=== PATIENT | female | born 1980 | race Caucasian/White ===

== ENCOUNTER 2019-12-19 14:33 | Outpatient (CLI) | payer OTHER, SELFPAY ==
--- NOTE | 2019-12-19 | ECHO_ITS ---
Patient Info Name: Aaliyah Young Age: 39 years : 1980 Gender: Female Ht: 66 in Wt: 155 lbs BSA: 1.82 m2 HR: 76 bpm BP: 102 / 75 mmHg Heart Rhythm: Sinus Rhythm Technical Quality: Excellent Exam Date: 12/19/2019 2:59 PM Exam Location: [facility] Pulmonary Patient Status: Outpatient Admit Date: 12/19/2019 Staff Ordering Physician: Sondra, Milagros Marie APRN Puller Over: Yesica Inman RDCS Attending Provider: Marianela, Milagros Marie APRN Referring Physician: Sondra KEATING; Exam Type: CA echo doppler color flow Study Info Indications M35.7 - HYPERMOBILITY SYNDROME Complete two-dimensional, color flow and Doppler transthoracic echocardiogram is performed. Summary 1. Left ventricular systolic function is normal, estimated at 60-65%. 2. There is no increased left ventricular wall thickness. 3. The left ventricular diastolic function is normal. 4. Global longitudinal strain is normal at -23 %. 5. There is trace mitral valve regurgitation. 6. No pulmonary hypertension, estimated pulmonary arterial systolic pressure is 17 mmHg. Left Ventricle Left ventricular chamber dimension is normal. Left ventricular systolic function is normal, estimated at 60-65%. There is no increased left ventricular wall thickness. The left ventricular diastolic function is normal. Global longitudinal strain is normal at -23 %. Right Ventricle Right ventricular chamber dimension is normal. Right ventricular systolic function is normal. Left Atria Left atrial chamber dimension is normal. Right Atria Right atrial chamber dimension is normal. Aortic Valve The aortic valve is trileaflet. There is no aortic valve stenosis. There is no aortic valve regurgitation. Pulmonic Valve The pulmonic valve is not well visualized. There is trace pulmonic regurgitation. Mitral Valve The mitral valve has normal leaflets. There is trace mitral valve regurgitation. Tricuspid Valve The tricuspid valve leaflets are normal. There is trace tricuspid valve regurgitation. No pulmonary hypertension, estimated pulmonary arterial systolic pressure is 17 mmHg. Pericardium/Pleural The pericardium appears normal. There is no pericardial effusion. Inferior Vena Cava Normal inferior vena cava with >50% collapse upon inspiration consistent with normal right atrial pressure, 5 mmHg. Aorta The aortic root size at the sinus of Valsalva is normal. The prox ascending aorta size is normal. Left Ventricular Outflow Tract Name Value Normal LVOT 2D LVOT Diameter 2.0 cm LVOT Doppler LVOT Peak Gradient 3 mmHg LVOT Mean Gradient 2 mmHg LVOT VTI 18 cm LVOT VTI/AV VTI Ratio 0.7 LVOT Stroke Volume 55 ml LVOT CO 3.8 l/min LVOT CI 2.1 l/min/m2 Pulmonic Valve Name Value Normal
== END 2019-12-19 14:34 | disposition home or self-care (01) ==
PROVIDERS: Visit Provider Nurse Practitioner Family
DX: M35.7 Hypermobility syndrome (principal)
CPT/HCPCS: 93306

== ENCOUNTER 2020-08-20 08:26 | Outpatient (CLI) | payer OTHER, SELFPAY ==
--- NOTE | ~2020-08-20 | MM_ITS ---
EXAMINATION: MM screening ned BI w katt HISTORY: Screening TECHNIQUE: Craniocaudal and mediolateral oblique 3-D tomosynthesis images were obtained and synthetic 2-D images were generated. CAD analysis was submitted and interpreted. COMPARISON: No prior mammogram is available for comparison at this institution. BREAST PARENCHYMAL COMPOSITION: There are scattered areas of fibroglandular density. FINDINGS: There is no evidence of suspicious mass, calcification, or architectural distortion to sugg est malignancy in either breast. There has been no suspicious interval change. IMPRESSION: 1. No mammographic evidence of malignancy. 2. Recommend routine screening mammography in one year. BI-RADS Category 1: Negative Reviewed, dictated and finalized at location A.
== END 2020-08-20 08:27 | disposition home or self-care (01) ==
PROVIDERS: Visit Provider Obstetrics & Gynecology Gynecology
DX: Z12.31 Encounter for screening mammogram for malignant neoplasm of breast (principal)
CPT/HCPCS: 77063; 77067

== ENCOUNTER 2020-11-22 08:58 | Outpatient (NON) | payer OTHER, SELFPAY ==
[2020-11-22 18:47] LABS: SARS-CoV-2 RNA PCR Negative
== END 2020-11-22 08:59 ==
LOC: ANHCOVIDDT 09:00
PROVIDERS: PCP Family Medicine; Visit Provider Family Medicine
DX: Z20.822 Contact with and (suspected) exposure to COVID-19 (principal)
CPT/HCPCS: C9803; U0003; U0005

== ENCOUNTER 2020-12-09 08:05 | Outpatient (CLI) | payer OTHER, SELFPAY ==
--- NOTE | ~2020-12-09 | XR_ITS ---
XR chest 2V DATE: 12/09/2020 08:30 INDICATION: Shortness of breath for 4 weeks. Nonsmoker. TECHNIQUE: PA and lateral views COMPARISON: 05/18/2017 two-view chest 06/28/2009 CT pulmonary scan FINDINGS: Normal heart size. No hilar or mediastinal enlargement. No pulmonary infiltrate or consolidation, pleural effusion or pulmonary vascular congestion or pneumo thorax. Mild thoracic and lumbar scoliosis. IMPRESSION: No active cardiopulmonary disease Reviewed, dictated and finalized at location A. 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
[2020-12-09 08:29] LABS: Basophils Percent Auto 0.6 % (0.2-1.2); Eosinophils Absolute Auto 0.3 K/mm3 (0-0.3); Eosinophils Percent Auto 4.7 % (0-4.4); Hematocrit 40.4 % (37.0-47.0); Hemoglobin 13.3 g/dL (12.0-15.0); Immature Granulocyte Absolute 0.01 K/mm3 (0.00-0.031); Immature Granulocyte Percent A 0.2 % (0-0.5); Lymphocytes Absolute Auto 1.82 K/mm3 (0.9-3.2); Lymphocytes Percent Auto 33.9 % (18.3-44.2); Mean Corpuscular HGB Conc 32.9 g/dl (32-36); Mean Corpuscular Hemoglobin 29.8 pg (26-34); Mean Corpuscular Volume 90.6 fl (80-100); Monocytes Absolute Auto 0.5 K/mm3 (0.1-0.6); Monocytes Percent Auto 9.1 % (2.6-8.5); Neutrophils Absolute Auto 2.8 K/mm3 (1.3-6.7); Neutrophils Percent Auto 51.5 % (45.5-73.1); Platelet Count Result 211 k/mm3 (150-375); Red Blood Count 4.46 M/mm3 (4.2-5.4); Red Cell Distribution Width 12.3 % (11.5-14.5); White Blood Count 5.4 K/mm3 (4.5-10.0)
[2020-12-09 09:40] LABS: Alanine Aminotransferase 13 U/L (4-35); Alkaline Phosphatase 51 U/L (38-126); Anion Gap 6 mmol/L (8-16); Aspartate Amino Transferase 21 U/L (14-36); Bilirubin,Total 0.5 mg/dL (0.2-1.3); Blood Urea Nitrogen 14 mg/dL (7-17); Carbon Dioxide 27 mmol/L (22-30); Chloride 108 mmol/L (98-107); Cholesterol 160 mg/dL (0-200); Estimated Glomerular Filt Rate > 60; Glucose 99 mg/dL (65-105); HDL Direct 54 mg/dL; Potassium 4.2 mmol/L (3.4-5.0); Sodium 141 mmol/L (137-145); Triglycerides 66 mg/dL (<150)
[2020-12-09 09:53] LABS: LDL Cholesterol Direct 78 mg/dL
[2020-12-09 10:09] LABS: Free T4 Free Thyroxine 0.84 ng/mL (0.78-2.19); Vitamin D 25 Hydroxy 40.9 ng/mL
[2020-12-09 10:13] LABS: Total Triiodothyronine (T3) 1.01 NG/ML (0.97-1.69)
== END 2020-12-09 08:06 | disposition home or self-care (01) ==
PROVIDERS: PCP Family Medicine; Visit Provider Nurse Practitioner
DX: R06.02 Shortness of breath (principal); E55.9 Vitamin D deficiency, unspecified; Z13.6 Encounter for screening for cardiovascular disorders; Z13.0 Encounter for screening for diseases of the blood and blood-forming organs and certain disorders involving the immune mechanism; Z13.220 Encounter for screening for lipoid disorders; Z13.29 Encounter for screening for other suspected endocrine disorder
CPT/HCPCS: 36415; 71046; 80053; 80061; 82306; 84439; 84443; 84480; 85025

== ENCOUNTER → 2021-01-27 01:00 | Outpatient (CLI) | payer OTHER, SELFPAY ==
[2021-01-27 20:24] LABS: SARS-CoV-2 RNA PCR Negative
== END ==
PROVIDERS: PCP Family Medicine; Visit Provider Internal Medicine Gastroenterology
DX: Z01.812 Encounter for preprocedural laboratory examination (principal); Z20.822 Contact with and (suspected) exposure to COVID-19
CPT/HCPCS: C9803; U0003; U0005

== ENCOUNTER 2021-01-30 01:38 | Day surgery (SDC) | payer OTHER, SELFPAY ==
[2021-01-16 10:20] VITALS: BMI 24.5
[2021-01-30 09:56] VITALS: BP 116/76; PULSE 85; RESP 16; TEMP 37.1; O2SAT 100; BMI 24.3
[2021-01-30] MEDS: LACTATED RINGERS 1,000 ML 150 ML IV CONT (10:04)
--- NOTE | 2021-01-30 10:12 | P.PNAN_ITS ---
Anes - Initial Pre Proc Eval Procedure: Operation Date: 01/30/21 11:00 Proposed Procedures p Esophagogastroduodenoscopy - Madi Jonas DO Date/Time: 01/30/21 10:12 Surgeon: Madi Jonas DO Pre Op Diagnosis: dysphagia Patient Data Age: 40 Gender: F Height: 5 ft 6 in Weight: 68.5 kg Last Vital Signs Temp 98.8 F 01/30/21 09:56 Pulse 85 01/30/21 09:56 Resp 16 01/30/21 09:56 BP 116/76 01/30/21 09:56 Pulse Ox 100 01/30/21 09:56 Allergies Allergy/AdvReac Type Severity Reaction Status Date / Time No Known Allergies Allergy Verified 01/30/21 09:55 Home Medications Medication Instructions Recorded Confirmed Type celecoxib 200 mg PO DAILY 01/16/21 01/16/21 History hydroxyzine HCl 25 mg PO HS 01/16/21 01/16/21 History omeprazole 20 mg PO DAILY 01/16/21 01/16/21 History Patient hx anesthesia problems: none Family hx anesthesia problems: none [facility] Past Medical History Medical History (Updated 01/30/21 @ 10:12 by Wil Agustin MD) GERD (gastroesophageal reflux disease) Social History Social History Smoking status: Never smoker Alcohol intake: never Substance use: never Substance use type: does not use Living arrangements: with family Spiritual care concerns: No Anes - Eval Final PreProcedure Day of Procedure 01/30/21 10:12 Patient weight: normal Heart: regular rate and rhythm Lungs: clear to auscultation Airway: Mallampati scale class II Neurological: alert and oriented Last oral intake: >/= 8 hours ASA classification: II Emergent: no Anesthetic plan: proceed Anesthesia type and monitoring: general GIVS and standard monitoring Informed Consent: The patient's anesthetic plan and its attendant risks and benefits were discussed with the patient/family/POA. Questions were solicited and answers provided to the satisfaction of the patient/family/POA.
--- NOTE | 2021-01-30 10:45 | WPDGICN ---
GI Consult Note Consult date/time: 01/30/21 10:45 HPI: Reason for visit is EGD. This very pleasant lady seen in consultation at request of the primary physician. Impression: Here above very pleasant lady with a history dysphagia and reflux disease. We evaluate for underlying reflux induced stricture. Underlying eosinophilic esophagitis in differential. Ankylosing spondylitis with HLA B27 positivity. Recommendation: Continue omeprazole. Will proceed with EGD. History: This very pleasant lady is being read for dysphagia. She has dysphagia to solid foods for the last year so. She does have reflux a couple of times per week. She was complaining of chest pressure polyps. One placed on omeprazole her chest pressure and heartburn have improved considerably. She is here for endoscopic evaluation to assess for lying stricture. Physical examination: General: very pleasant patient in no acute distress. HEENT: Head was normocephalic sclerae is clear mouth without masses neck was supple. Heart: Rate rhythm regular without S3 or S4. Lungs: CTA. Abdomen: Soft with no guarding or rigidity. Bowel sounds were active. Neurologic: Cranial nerves 2 through 12 intact. No focal defects. No clonus. Musculoskeletal system: Revealed no joint tenderness or swelling no muscle atrophy. Extremities: Reveal no significant edema. Skin: Warm and dry with normal turgor. Mental status: intact. Patient is alert and oriented. Review of Systems Review of Systems: All systems reviewed & are unremarkable except as noted in HPI and below PMFSH Past Medical History Medical History (Updated 01/30/21 @ 10:12 by Wil Agustin MD) GERD (gastroesophageal reflux disease) Social History Social History Smoking status: Never smoker Alcohol intake: never Substance use: never Substance use type: does not use Living arrangements: with family Spiritual care concerns: No Meds Home Medications and Allergies Home Medications Medication Instructions Recorded Confirmed Type celecoxib 200 mg PO DAILY 01/16/21 01/16/21 History hydroxyzine HCl 25 mg PO HS 01/16/21 01/16/21 History omeprazole 20 mg PO DAILY 01/16/21 01/16/21 History Allergies Allergy/AdvReac Type Severity Reaction Status Date / Time No Known Allergies Allergy Verified 01/30/21 09:55 Vital Signs Vital Signs - 24 hr 01/30/21 09:56 Temperature 37.1 C Pulse Rate 85 Respiratory Rate 16 Blood Pressure 116/76 Pulse Oximetry 100
[2021-01-30 11:05] VITALS: BP 91/51; PULSE 75; RESP 20; O2SAT 100
[2021-01-30 11:15] VITALS: BP 105/75; PULSE 75; RESP 20; O2SAT 100
[2021-01-30 11:25] VITALS: BP 111/78; PULSE 75; RESP 20; O2SAT 100
== END 2021-01-30 11:39 | disposition home or self-care (01) ==
PROVIDERS: PCP Family Medicine; Visit Provider Internal Medicine Gastroenterology
PROC: 0DJ08ZZ Inspection of Upper Intestinal Tract, Via Natural or Artificial Opening Endoscopic (ICD-10-PCS; CPT 43235; principal; 2021-01-30 11:00)
DX: K21.9 Gastro-esophageal reflux disease without esophagitis (principal); R13.10 Dysphagia, unspecified; K31.7 Polyp of stomach and duodenum; M45.9 Ankylosing spondylitis of unspecified sites in spine
CPT/HCPCS: 43239; 43450; 87081; 88305; C9803; J2704; J7120; U0003; U0005

== ENCOUNTER 2021-04-20 12:15 | Emergency (ER) | payer OTHER, SELFPAY ==
[2021-04-20 12:24] VITALS: BP 115/87; PULSE 85; RESP 16; TEMP 37; O2SAT 100
--- NOTE | 2021-04-20 12:25 | ED.ANIMALBIT ---
HPI - Animal Bite General Chief Complaint: Animal Bite Stated Complaint: cat bite Time Seen by Provider: 04/20/21 12:26 Source: patient and RN notes reviewed Mode of arrival: ambulatory Limitations: no limitations History of Present Illness HPI narrative: 41 yo female [facility] C/O being bite by a cat. Bite villa noted to the right index and middle finger. states that she called the telehealth doctor and they had sent her in some Augmentin. Was told to also come get evaluated at the urgent care. Last tetanus was about 7 years ago. Does have full range of motion of all 5 fingers, sensation intact in all 5 fingers. Capillary refill under 2 seconds. This was her 12-year-old cat, states the cat is up-to-date on vaccines. Related Data Home Medications Medication Instructions Recorded Confirmed celecoxib 200 mg PO DAILY 01/16/21 04/20/21 hydroxyzine HCl 25 mg PO HS 01/16/21 04/20/21 omeprazole 20 mg PO DAILY 01/16/21 04/20/21 adalimumab [Humira(CF) Pen] 40 mg SUBCUT 04/20/21 Allergies Allergy/AdvReac Type Severity Reaction Status Date / Time No Known Allergies Allergy Verified 04/20/21 12:30 Review of Systems Review of Systems: All systems reviewed & are unremarkable except as noted in HPI and below Constitutional: Constitutional: Reports no additional constitutional complaints, Denies chills and Denies fever(s) Eyes: Eyes: Reports no additional eye complaints ENT: Reports system reviewed and no additional complaints, except as documented Cardiovascular: Cardiovascular: Reports no additional cardiovascular complaints Respiratory: Respiratory: Reports no additional respiratory complaints Gastrointestinal: Gastrointestinal: Reports no additional gastrointestinal complaints Musculoskeletal: Musculoskeletal: Reports no additional musculoskeletal complaints Integumentary/Breasts: Skin/Breast: Reports as per HPI Comments: Puncture wounds to the right middle and index fingers. Areas are clean. Has full range of motion of PIP and DIP joints. Capillary refill under 2 seconds. Sensation intact distal to injuries. Bleeding is controlled Neurologic: Reports system reviewed and no additional complaints, except as documented, Denies dizziness, Denies syncope, Denies focal weakness and Denies numbness Psychiatric: Psychiatric: Reports no additional psychiatric complaints Allergic/Immunologic: Allergic/Immunologic: Reports no additional allergic/immunologic complaints [facility] Past Medical History Medical History (Updated 04/20/21 @ 12:43 by Krista Foreman) GERD (gastroesophageal reflux disease) Social History Social History Smoking status: Never smoker Alcohol intake: never Substance use: never Substance use type: does not use Spiritual care concerns: No Comments At the time of my signature, I reviewed and agree with the nursing past medical, surgical, social, and family history. There is no relevant family history pertinent to the patient complaint. Exam Const: General: healthy appearing, no acute distress and alert Nutritional Appearance: well nourished Orientation/consciousness: patient oriented x3 Limitations: no limitations HENMT: Head: normal to inspection Eyes: Pupils: Equal, round and reactive pupils present Neck: Neck: normal visual inspection, no lymphadenopathy and no meningeal signs Chest: Chest palpation & inspection: normal inspection of the chest Resp: Effort & Inspection: normal respiratory effort and no use of accessory muscles Auscultation: clear to auscultation bilaterally, no crackles, no rales, no rhonchi and no wheezes Cardio: Rate: regular rate Rhythm: regular rhythm Back/Spine/Pelvis: Back: no CVA tenderness Skin: Other: Multiple puncture wounds noted to right second and third fingers. Areas are clean. Bleeding is well controlled. Neuro: General: patient oriented x3, moves all extremities
[2021-04-20] MEDS: TETANUS,DIPHTHERIA,AC PERTUSSIS ADULT (0.5 ML) BOOSTRIX IM (12:42)
== END 2021-04-20 12:56 | disposition home or self-care (01) ==
PROVIDERS: Emergency Provider Nurse Practitioner; PCP Family Medicine
DX: S61.230A Puncture wound without foreign body of right index finger without damage to nail, initial encounter (principal); S61.232A Puncture wound without foreign body of right middle finger without damage to nail, initial encounter; W55.01XA Bitten by cat, initial encounter; Z23 Encounter for immunization; K21.9 Gastro-esophageal reflux disease without esophagitis
CPT/HCPCS: 90471; 90715; 99212; G0463

== ENCOUNTER → 2021-06-03 08:54 | Outpatient (CLI) | payer OTHER, SELFPAY ==
[2021-06-03 20:36] LABS: SARS-CoV-2 RNA PCR Negative
== END ==
PROVIDERS: PCP Family Medicine; Visit Provider Family Medicine
DX: R68.89 Other general symptoms and signs (principal); Z20.822 Contact with and (suspected) exposure to COVID-19
CPT/HCPCS: C9803; U0003; U0005

== ENCOUNTER 2021-08-25 08:25 | Outpatient (CLI) | payer OTHER, SELFPAY ==
--- NOTE | ~2021-08-25 | MM_ITS ---
EXAMINATION: MM screening ned BI w katt HISTORY: Screening mammogram TECHNIQUE: Craniocaudal and mediolateral oblique 3-D tomosynthesis images were obtained and synthetic 2-D images were generated. CAD analysis was submitted and interpreted. COMPARISON: 08/20/2020 bilateral digital screening mammogram BREAST PARENCHYMAL COMPOSITION: There are scattered areas of fibroglandular density. FINDINGS: There is no evidence of suspicious mass, calcification, or architectural distortion to sugg est malignancy in either breast. There has been no suspicious interval change. IMPRESSION: 1. No mammographic evidence of malignancy. 2. Recommend routine screening mammography in one year. BI-RADS Category 1: Negative Reviewed, dictated and finalized at location A.
== END 2021-08-25 08:26 | disposition home or self-care (01) ==
PROVIDERS: PCP Family Medicine; Visit Provider Obstetrics & Gynecology Gynecology
DX: Z12.31 Encounter for screening mammogram for malignant neoplasm of breast (principal)
CPT/HCPCS: 77063; 77067

== ENCOUNTER 2021-10-16 08:30 | Outpatient (RCR) | payer OTHER, SELFPAY ==
--- NOTE | 2021-09-18 13:49 | PTOPEVAL ---
Thank you for referring Aaliyah Young to [facility].? The patient is scheduled to be seen for therapy? 1-2 x/week for 4 weeks. Please review, sign, date and return this plan of care RAMÓN. I agree with and certify that the following plan of care is medically necessary. Referring Physician Date Referring Provider: Dr. 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 She tries to wear to wear flat shoes or tennis shoes unless in court. Subjective Information She c/o arcenio feet pain which Query Text:As Reported By Patient/ will increase with walking and Family standing. She stretches, uses ice and wear orthotics, but no relief. She c/o pain mainly on the heel, but has recently progressed up into the gastroc region. Increased discomfort with wearing shoes. Also c/o chronic back pain which increases with prolonged sitting. She was recently DX with anklylosis spondylitis. She has received multiple bouts of therapy for her back pain for SIJ pain. She performs some core stability exercises. HEP of clamshell, bridging, calf stretching. General workout videos. She johann only walking 1 mile a day, but would like to walk 3 miles a day. Pain Assessment Bilateral Lower Back Reported Pain Level 5 Pain Description Tightness Pain Frequency Chronic,Continuous Lowest Pain Intensity 5 Greatest Pain Intensity 7 Pain Aggravating Factors Prolonged Position,Sitting Right Foot/Feet Reported Pain Level 5 Pain Description Aching,Sharp,Tender on Palpation Pain Frequency Chronic,Continuous Lowest Pain Intensity 1 Greatest Pain Intensity 8 Pain Aggravating Factors Walking,Weight Bearing/ St
--- NOTE | 2021-10-16 12:26 | PTOPEVAL ---
Physical therapy discharge summary. Thank you for referring Aaliyah Young to [facility].? She has attended 8 therapy visits to address her back and foot pain. She reports improved pain with only slight changes in function. She has been provided a HEP and performs indep. Will DC skilled therapy services at this time. Please review, sign, date and return this discharge summary RAMÓN. I agree with and certify that the following plan of care is medically necessary. Referring Physician Date Referring Provider: Dr. 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 She tries to wear to wear flat shoes or tennis shoes unless in court. Subjective Information Reports the therapy slight Query Text:As Reported By Patient/ improved symptoms with therapy. Family Reports the taping to her back did help provide stability sensation. No changes with c/o arcenio feet pain with walking and standing. She c/o pain mainly on the heel, but has recently progressed up into the gastroc region. Also c/o chronic back pain which increases with prolonged sitting. No changes with walking johann, limited to 1 mile . Pain Assessment Bilateral Lower Back Reported Pain Level 4 Lowest Pain Intensity 2 Greatest Pain Intensity 4 Right Foot/Feet Reported Pain Level 5 Lowest Pain Intensity 3 Greatest Pain Intensity 8 Left Foot/Feet Reported Pain Level 1 Lowest Pain Intensity 0 Greatest Pain Intensity 4 Lower Extremity Muscle Strength Testing General Lower Extremity Strength Gross Lower Extremity Strength arcenio hip abduction 3+/5 toe ext: 4/5, 15 single heel raises with increased pain on right after 12 reps Palpation Assessment Palpation Palpation severe tenderness of piriformis region, glut med and lateral edges of sacrum mild tenderness of arcenio QL region severe tenderness right plantar surface of calcaneous
== END 2021-10-16 16:24 | disposition home or self-care (01) ==
LOC: ANHPT 08:30
PROVIDERS: PCP Family Medicine
DX: M54.9 Dorsalgia, unspecified (principal); M79.672 Pain in left foot; M79.671 Pain in right foot
CPT/HCPCS: 97014; 97035; 97110; 97140; 97162; G0283

== ENCOUNTER 2022-10-29 08:54 | Outpatient (CLI) | payer OTHER, SELFPAY ==
--- NOTE | ~2022-10-29 | MM_ITS ---
EXAMINATION: MM screening ned BI w katt HISTORY: Screening TECHNIQUE: Craniocaudal and mediolateral oblique 3-D tomosynthesis images were obtained and synthetic 2-D images were generated. CAD analysis was submitted and interpreted. COMPARISON: Comparison to multiple prior studies sequentially, with oldest reviewed study dated 08/08. BREAST PARENCHYMAL COMPOSITION: There are scattered areas of fibroglandular density. FINDINGS: There is no evidence of suspicious mass, calcification, or architectural distortion to sugg est malignancy in either breast. There has been no suspicious interval change. IMPRESSION: 1. No mammographic evidence of malignancy. 2. Recommend routine screening mammography in one year. BI-RADS Category 1: Negative Reviewed, dictated and finalized at location A. E BENDER
== END 2022-10-29 08:55 | disposition home or self-care (01) ==
PROVIDERS: PCP Family Medicine; Visit Provider Nurse Practitioner
DX: Z12.31 Encounter for screening mammogram for malignant neoplasm of breast (principal)
CPT/HCPCS: 77063; 77067

== ENCOUNTER 2023-11-09 08:33 | Outpatient (CLI) | payer OTHER, SELFPAY ==
--- NOTE | ~2023-11-09 | MM_ITS ---
EXAMINATION: MM screening ned BI w katt HISTORY: Screening mammogram TECHNIQUE: Craniocaudal and mediolateral oblique 3-D tomosynthesis images were obtained and synthetic 2-D images were generated. CAD analysis was submitted and interpreted. COMPARISON: 10/29/2022, 08/25/2021, 08/20/2020 bilateral screening mammogram examinations BREAST PARENCHYMAL COMPOSITION: There are scattered areas of fibroglandular density. FINDINGS: There is no evidence of suspicious mass, calcification, or architectural distortion to sugg est malignancy in either breast. There has been no suspicious interval change. IMPRESSION: 1. No mammographic evidence of malignancy. 2. Recommend routine screening mammography in one year. BI-RADS Category 1: Negative Reviewed, dictated and finalized at location B. 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
== END 2023-11-09 08:34 | disposition home or self-care (01) ==
PROVIDERS: PCP Family Medicine; Visit Provider Nurse Practitioner
DX: Z12.31 Encounter for screening mammogram for malignant neoplasm of breast (principal)
CPT/HCPCS: 77063; 77067

== ENCOUNTER 2025-01-22 08:13 | Outpatient (CLI) | payer OTHER, SELFPAY ==
--- NOTE | ~2025-01-22 | MM_ITS ---
EXAMINATION: MM screening ned BI w katt HISTORY: Screening TECHNIQUE: Craniocaudal and mediolateral oblique 3-D tomosynthesis images were obtained and synthetic 2-D images were generated. CAD analysis was submitted and interpreted. COMPARISON: Comparison to multiple prior studies sequentially, with oldest reviewed study dated 08/08. BREAST PARENCHYMAL COMPOSITION: Not dense: There are scattered areas of fibroglandular density. FINDINGS: There are developing asymmetries in the subareolar location of the left breast on CC view. The right breast is stable without evidence for malignancy. IMPRESSION: 1. Developing left breast asymmetries. 2. Additional mammographic views and possible breast ultrasound are recommended. BI-RADS Category 0: Incomplete: Needs additional imaging evaluation. Reviewed, dictated and finalized at location [] IMPRESSION: 1. Developing left breast asymmetries. 2. Additional mammographic views and possible breast ultrasound are recommended . BI-RADS Category 0: Incomplete: Needs additional imaging evaluation.
--- OUTSIDE RECORDS SUMMARY | 2025-01-22 08:34 | XMS_ITS | Referral Summary ---
Author Organization [facility] Address [address] [place] [address] Care Team Providers Care Photo Tech Name Role Phone Miles Quezada DO Primary Care Provider Source Comments [facility],non-owned Affiliates and Associated Physician Practices is amultiple site organization consisting of ambulatory clinics and hospital sitesin [place], [place], [place] and [place]. This disclosure is being madepursuant to the Care Everywhere program and may not contain all information available regarding this patient. Last updated 18.[facility] Allergies No known active allergies Medications * Be aware that medications may not be up to date on this document. Alwaysverify current medications with the patient. Medication Sig Dispensed Refills Start Date End Date Status Levonorgestrel (LILETTA, 52 MG, IU) Acti ve Cholecalciferol (VITAMIN D) 2000 UNITS capsule Take 2,000 Units by mouth once daily Active ibuprofen (MOTRIN) 600 MG tablet 10/05/2012 Active Active Problems Problem Noted Date Diagnosed Date Multiple benign nevi of uppe r extremity, lower extremity, and trunk 03/02/2018 Social History Tobacco Use Types Packs/Day Years Used Date Smoking Tobacco: Never Smokeless Tobacco: Never Alcohol Use Standard Drinks/Week Comments No 0 (1 standard drink = 0.6 oz pur e alcohol) Sex and Gender Information Value Date Recorded Sex Assigned at Not on file Gender Identity Not on file Sexual Orientation Not on file Last Filed Vital Signs Vital Sign Reading Time Taken Comments Blood Pressure 100/58 01/01/2018 3:05 PM CAREER ADVISOR Pulse 70 01/01/2018 3:05 PM CAREER ADVISOR Temperature 36.7 C (98.1 F) 01/01/2018 3:05 PM CAREER ADVISOR Respiratory Rate 16 01/01/2018 3:05 PM CAREER ADVISOR Oxygen Saturation 100% 01/01/2018 3:05 PM CAREER ADVISOR Inhaled Oxygen Concentration - - Weight 70.3 kg (155 lb) 01/01/2018 3:05 PM CAREER ADVISOR Height 167.6 cm (5' 6 ) 01/01/2018 3:05 PM CAREER ADVISOR Body Mass Index 25.02 01/01/2018 3:05 PM CAREER ADVISOR Plan of Treatment Not on file Care Teams Photo Tech Relationship Specialty Start Date End Date Miles Quezada DO PCP - General 03/02/18
--- OUTSIDE RECORDS SUMMARY | 2025-01-22 08:34 | XMS_ITS | Encounter Summary ---
Author Organization [facility] Address [facility] [place] [address] Care Team Providers Care Weapons System Instrument Mechanic Name Role Phone Fe Aguilar MD Primary Care Provider [phone] Encounter Details Date Type Department Care Team (Late st Contact Info) Description 10/28/2023 [facility] [address] [address] [address] [place] [address] Fe Aguilar MD [address] [place] [address] [id number] Covid Social History Tobacco Use Types Packs/Day Years Used Date Smoking Tobacco: Never Smokeless Tobacco: Never Comments:Counseled by DR Alix hancock Alcohol Use Standard Drinks/Week Comments Not Currently 0 (1 standard drink = 0.6 oz pur e alcohol) At most one a month PHQ-2 Answer Date Recorded Patient Health Questionnaire-2 Score 0 10/15/2023 Comments No Sex and Gender Information Value Date Recorded Sex Assigned at Female 01/04/2025 11:27 AM SAP BW BI DEVELOPER Legal Sex Female 8:21 PM CDT Gender Identity Female 01/04/2025 11:27 AM SAP BW BI DEVELOPER Sexual Orientation Not on file documented as of this encounter Plan of Treatment Upcoming Encounters Date Type Department Care Team (Latest Contact Info) Description 05/01/2025 8:20 AM CDT Office Visit [facility] [address] [address] [address] [place] [address] Fe Aguilar MD [address] [place] [address] [address] [place], [place] [id number] 05/23/2025 8:59 AM CDT Hospital Encounter [facility] [address] [place] [address] Leonel Mansfield MD [address] [facility] [address] [place] [address] 05/23/2025 8:59 AM CDT - 05/23/2025 9:25 AM CDT Surgery [facility] [address] [place] [id number] Leonel Mansfield MD 3 [facility] [address] [place] [address] COLONOSCOPY SCREENING Scheduled Procedures Name Priority Associated Diagnoses Date/Ti me COLONOSCOPY SCREENING Screening for colon cancer 05/23/2025 8:59 AM CDT documented as of this encounter Visit Diagnoses Not on filedocumented in this encounter Additional Health Concerns Assessment Noted Time PHQ-9 Depression Total Score: 3 10/15/20 23 2:26 PM SAP BW BI DEVELOPER documented as of this encounter Care Teams Weapons System Instrument Mechanic Relationship Specialty Start Date End Date Fe Aguilar MD [address] [facility] [address] [place] [address] PCP - General INTERNAL MEDICINE 09/23/22 documented as of this encounter
--- OUTSIDE RECORDS SUMMARY | 2025-01-22 08:34 | XMS_ITS | Patient Health Summary ---
Author Organization [facility] Address [address] [facility] [place] [address] Care Team Providers Care Mining Helper Name Role Phone Miles Quezada DO Primary Care Provider Note from [facility],non-owned Affiliates and Associated Physician Practices is amultiple site organization consisting of ambulatory clinics and hospital sitesin [place], [place], [place] and [place]. This disclosure is being madepursuant to the Care Everywhere program and may not contain all information available regarding this patient. Last updated 18.[facility] Allergies No known active allergies Medications * Be aware that medications may not be up to date on this document. Alwaysverify current medications with the patient. * Levonorgestrel (LILETTA, 52 MG, IU) * Cholecalciferol (VITAMIN D) 2000 UNITS capsule Take 2,000 Units by mouth once daily * ibuprofen (MOTRIN) 600 MG tablet(Started 10/05/2012) Active Problems Problem Noted Date Diagnosed Date [...] Comments Blood Pressure 100/58 01/01/2018 3:05 PM APARTMENT LEASING SPECIALIST Pulse 70 01/01/2018 3:05 PM APARTMENT LEASING SPECIALIST Temperature 36.7 C (98.1 F) 01/01/2018 3:05 PM APARTMENT LEASING SPECIALIST Respiratory Rate 16 01/01/2018 3:05 PM APARTMENT LEASING SPECIALIST Oxygen Saturation 100% 01/01/2018 3:05 PM APARTMENT LEASING SPECIALIST Inhaled Oxygen Concentration - - Weight 70.3 kg (155 lb) 01/01/2018 3:05 PM APARTMENT LEASING SPECIALIST Height 167.6 cm (5' 6 ) 01/01/2018 3:05 PM APARTMENT LEASING SPECIALIST Body Mass Index 25.02 01/01/2018 3:05 PM APARTMENT LEASING SPECIALIST Procedures * CULTURE THROAT(Performed 01/01/2018) Performed for Pharyngitis, unspecified etiology * INFLUENZA A+B - POINT OF CARE (AMB)(Performed 01/01/2018) Performed for Pharyngitis, unspecified etiology * STREP A SCREEN - POINT OF CARE (AMB) STL(Performed 01/01/2018) Performed for Pharyngitis, unspecified etiology * XR SPINE 1 VIEW(Performed 11/04/2012) Performed for Back pain * XR HIP LEFT 2VW OR MORE(Performed 11/04/2012) Performed for Hip pain Results * (ABNORMAL) CULTURE THROAT (01/01/2018 3:21 PM APARTMENT LEASING SPECIALIST) Pathologist [facility] Culture (A) [facility] Comment: CULTURE, THROAT MICRO NUMBER: [id number] TEST STATUS: FINAL SPECIMEN SOURCE: THROAT SPECIMEN QUALITY: ADEQUATE RESULT: Moderate growth of Group A Streptococcus isolated Beta-hemolytic Streptococci are predictably susceptible to penicillin and other beta-lactams. Susceptibility testing not routinely performed. COMMENT: Normal oropharyngeal claudia also present. Test Performed at: [facility] [address] AMINA BROWN MD Microbiology ENTIRE THROAT (SURFACE REGION OF NECK) / Unknown 01/01/2018 3:21 PM APARTMENT LEASING SPECIALIST 01/01/2018 10:00 PM APARTMENT LEASING SPECIALIST Charly Amanda TRANSPORTATION CLERK-[facility] - MICROBIOLOG Y ORDERABLES [address] [address] * INFLUENZA A+B - POINT OF CARE (AMB) (01/01/2018 3:15 PM APARTMENT LEASING SPECIALIST) Influenza A Antigen Rapid Negative Negative Influenza B Antigen Rapid Negative Negative Influenza Internal Control present NEGATIVE - POSITIVE Influenza Lot Number [id number] Influenza Expiration Date 11 15 2019 Other NASOPHARYNGEAL SWAB / Unknown 01/01/2018 3:15 PM APARTMENT LEASING SPECIALIST [facility]arly [facility]aler [facility] POINT OF [place] RE ORDERABLES * STREP A SCREEN (01/01/2018 3:14 PM APARTMENT LEASING SPECIALIST) Strep A Rapid POCT Negative Negative Strep A Internal Control Present Lot # [id number] Expiration Date 07 15 2019 Throat ENTIRE THROAT (SURFACE REGION OF NECK) / Unknown 01/01/2018 3:14 PM APARTMENT LEASING SPECIALIST Charly Amanda APRN-[facility] - POINT OF TN RE ORDERABLES * XR HIP 2+ VW LEFT (11/04/2012 10:31 AM APARTMENT LEASING SPECIALIST) Anatomical Region Laterality Modality Pelvis, Lower Extremity Radiogra phic Imaging 11/04/2012 1:04 PM APARTMENT LEASING SPECIALIST Narrative 11/04/2012 1:26 PM APARTMENT LEASING SPECIALIST THREE-VIEW LEFT HIP INCLUDING AP PELVIS HISTORY: Pain. Examination is obtained in the standing projection. The hip joints are grossly normal. There is no fracture, subluxation, bone destruction or significant joint space narrowing. The sacroiliac joints are normal. The soft tissues are normal. Procedure Note Leonel Mcgraw MD - 11/04/2012 THREE-VIEW LEFT HIP INCLUDING AP PELVIS HISTORY: Pain. Examination is obtained in the standing projection. The hip joints are grossly normal. There is no fracture, subluxation, bone destruction or significant joint space narrowing. The sacroiliac joints are normal. The soft tissues are normal. Angelo Whitley MD DIAGNOSTIC IMAGING ORDERABLES * XR SPINE 1 VIEW (11/04/2012 10:31 AM APARTMENT LEASING SPECIALIST) Anatomical Region Laterality Modality Spine Radiographic Azucena ging 11/04/2012 1:01 PM APARTMENT LEASING SPECIALIST Narrative 11/04/2012 1:26 PM APARTMENT LEASING SPECIALIST SINGLE LATERAL VIEW OF THE LUMBAR SPINE There is mild degenerative change without fracture or subluxation. Procedure Note Leonel Mcgraw MD - 11/04/2012 SINGLE LATERAL VIEW OF THE LUMBAR SPINE There is mild degenerative change without fracture or subluxation. Angelo Whitley MD DIAGNOSTIC IMAGING ORDERABLES Care Teams Mining Helper Relationship Specialty Start Date End Date Miles Quezada DO PCP - General 03/02/18
--- OUTSIDE RECORDS SUMMARY | 2025-01-22 08:34 | XMS_ITS | Clinical Summary ---
Author Organization [facility] Address [address] [facility], [address] [address] Phone Care Team Providers Care Amphibious Operations Officer Name Role Phone Cas Rizo MD Primary Care Provider Allergies No known active allergies Medications celecoxib (CeleBREX) 200 MG Capsule 12/25/2020 Active Cholecalciferol 2000 UNIT Capsule Take by mouth. Active hydrOXYzine (ATARAX) 25 MG Tablet TAKE 1 TABLET BY MOUTH AT BEDTIME NEEDED 11/07/2020 Active omeprazole (PriLOSEC) 20 MG CAPSULE DELAYED RELEASEIndicatio ns:Dysphagia, unspecified type TAKE 1 CAPSULE BY MOUTH TWICE DAILY 180 Capsule 2 04/03/2021 Active Active Problems No known active problems Immunizations Immunization Administration Dates Next Due Influenza Vaccine 07/06/2017,07/28/2016,08/13/20 15 Influenza Vaccine, Quadrivalent, PF 07/31/2020,0 08/02/2018,08/14/2014 Influenza, Injectable, Quadrivalent 07/31/2019 Influenza, Seasonal, Injectable, Undefined 08/03,11/04/2012 TDAP Vaccine 08/20/2013 Family History Medical History Relation Name Comments Diabetes Father Relation Name Status Comments Father Social History Tobacco Use Types Packs/Day Years Used Date Smoking Tobacco: Never Smokeless Tobacco: Never Tobacco Cessation:Counseling Given: No Alcohol Use Standard Drinks/Week Comments Yes 0 (1 standard drink = 0.6 oz pur e alcohol) 1x monthly Sexually Active Control Partners Comments Yes Comments No Sex and Gender Information Value Date Recorded Sex Assigned at Not on file Legal Sex Female 2:42 PM PHARMACY SERVICES DIRECTOR Gender Identity Not on file Sexual Orientation Not on file Last Filed Vital Signs Vital Sign Reading Time Taken Comments Blood Pressure 102/64 01/06/2021 9:03 AM PHARMACY SERVICES DIRECTOR Pulse 89 01/06/2021 9:03 AM PHARMACY SERVICES DIRECTOR Temperature 35.6 C (96 F) 01/06/2021 9:03 AM PHARMACY SERVICES DIRECTOR Respiratory Rate 18 01/06/2021 9:03 AM PHARMACY SERVICES DIRECTOR Oxygen Saturation 98% 01/06/2021 9:03 AM PHARMACY SERVICES DIRECTOR Inhaled Oxygen Concentration - - Weight 69.9 kg (154 lb) 01/06/2021 9:03 AM PHARMACY SERVICES DIRECTOR Height 167.6 cm (5' 6 ) 01/06/2021 9:03 AM PHARMACY SERVICES DIRECTOR Body Mass Index 24.86 01/06/2021 9:03 AM PHARMACY SERVICES DIRECTOR Plan of Treatment Health Maintenance Due Date Last Done Comments Hepatitis C Virus (HCV) Screening 1980 Hepatitis B Immunization (1 of 3 - 19+ 3-dose series) 02/12/1999 Influenza Immunization (#1) 07/09/202407/10, 07/31/2019, 08/02/2018, Additional history exists SARS-COV-2 Immunization ( season) 2024 09/10/2021, 02/10/2021, 01/19/2021 Respiratory Syncytial Virus (RSV) Immunization (Adult) (1 - 1-dose 75+ series) 02/12/2055 DTaP/Tdap/Td Immunization Discontinued 08/20/2013 Meningococcal Immunization (ACWY) Aged Out No longer eligible based on patient's age to complete this topic Pneumococcal Immunization Combined Aged Out No longer eligible based on patient's age to complete this topic Rotavirus Immunization Aged Out No lo nger eligible based on patient's age to complete this topic Care Teams Amphibious Operations Officer Relationship Specialty Start Date End Date Cas Rizo MD [address] [place] [id number] PCP - General Family Medicine 12/11/20
--- OUTSIDE RECORDS SUMMARY | 2025-01-22 08:34 | XMS_ITS ---
Author Organization [facility] Address [address] [facility] [address] [place] [address] Care Team Providers Care It Program Engagement Director Name Role Phone Fe Aguilar MD Primary Care Provider Myesha Travis Unavailable [phone] Allergies No Known Allergies REASON FOR VISIT yd,f/u,cc, Medications Medication SIG (Take, Route, Frequency, Duration) Notes Start Date End Date Status Omeprazole 40 MG 1 capsule 30 minutes before morning meal Orally Once a day for 30 day(s) Active Taltz 80 MG/ML 1 Subcutaneous every 4 weeks for 90 days Active hydrOXYzine HCl 25 MG take 1 tablet daily oral *Pick strength-form from Astrid for eRX* Active Etodolac 400 MG TAKE 1 TABLET(400 MG) BY MOUTH TWICE DAILY WITH FOOD for 90 Active predniSONE 5 MG 3 tablets once a day for 7 days, 2 tablets once a day for 7 days, 1 tablet once a day for 7 days Orally for 21 days 09/07/2024 09/27/2024 Active Encounters Encounter Location Date Provider Diagnosis [facility] [address] [facility] [address] [place] [address] 09/07/2024 Myesha Franco Ankylosing spondylit is of multiple sites in spine M45.0 ; Scleritis, unspecified laterality H15.009 ; Other local lupus erythematosus L93.2 ; Adverse effect of unspecified drugs, medicaments and biological substances, initial encounter T50.905A and Lumbar back pain M54.50 Assessments Encounter Date Diagnosis (ICD Code) Assessment Notes Treatment Notes Treatment Clinical Notes Section Notes 09/07/2024 Ankylosing spondylitis of multiple sites in spine (ICD-10 - M45.0) flared up, will treat with prednisone taper, continue taltz 09/07/2024 Scleritis, unspecified laterality (ICD-10 - H15.009) flared up, will treat with prednisone taper, continue taltz 09/07/2024 Other local lupus erythematosus (ICD-10 - L93.2) flared up, will treat with prednisone taper, continue taltz 09/07/2024 Adverse effect of unspecified drugs, medicaments and biological substances, initial encounter (ICD-10 - T50.905A) flared up, will treat with prednisone taper, continue taltz 09/07/2024 Lumbar back pain (ICD-10 - M54.50) flared up, will treat with prednisone taper, continue taltz Plan Of Treatment Medication Medication Name Sig Start Date Stop Date Notes predniSONE 5 MG 3 tablets once a day for 7 days, 2 tablets once a day for 7 days, 1 tablet once a day for 7 days Orally for 21 days 09/07/2024 09/27/2024 Next Appt Details Follow Up: 3 Months, Reason: Provider Name:Myesha Franco, 02/01 10:15:00 AM, [address] , [address], [address], Progress Notes * Jennifer HURSTIgnacioOB:1980 (44 yo F)Acc No.[id number]:09/07/2024 Patient: Aaliyah MARTINEZ Provider: Pennie FRANCO MD :1980 A ge:44 Y S ex:Female Date:09/07/2024 Address:[address] [place] [address] Pcp:Fe Aguilar MD Subjective: * Chief Complaints: * Y d,f/u,ccAS * HPI: G eneral Follow up: Synchronous video/audio telecommunication with [employer] Patient has agreed to telehealth visit and is aware insurance will be billed for this visit Location: patient at home, physician in office hair falling out, tired, jaw pain , headaches, +facial redness, feet bother her on etodolac and taltz, meds helping, doing fine for the most part, feet aching, sees tray drier operator, had injections, wears orthotics, am stiffness: 30 minutes hx of L eye scleritis in 01/2022, resolved after using steroid eye drops failed Mobic and Celebrex, failed gabapentin, failed humira, it had caused headaches and fatigue, failed simponi aria, 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 She has seen Dr. Ribera and pain doctor, failed gabapentin. muscle relaxers made her groggy, Physical therapy did helpsome. Pyriformis injection did help. SI injections did not help. HLA-B27 (+) Brother: ankylosing spondylitis Mother: HLA-B27 (+). * ROS: G eneral / Constitutional: Patient denies c hange in appetite, chills, fatigue, fever, weight loss, weakness, change in appetite, chills, fatigue, fever, weight loss, weakness. C omments S HPI for details, See HPI for details. M usculoskeletal: Comments S HPI for details, See HPI for details. ? S kin: Comments S HPI for details , See HPI for details . ? N eurologic: Patient denies d izziness, gait abnormality, headache, tingling / numbness , dizziness, gait abnormality, headache, tingling / numbness . * Medical History: * Surgical History: W rist surgery; 2020-12-14 * Hospitalization/Major Diagno stic Procedure: * Family History: M igrated Family History: Atrial Fibrillation , Diabetes . * Social History: M igrated Social History: M igrated Social History: :: 2 Children , Exercise :: Walks :: note : 08/03/2023 - walks, Marital Status :: , Substance Use :: rare alcohol usage , Substance Use :: Tobacco :: Never. D rug/Alcohol: D o you drink alcohol?: Rarely. * Medications: T akingTaltz 80 MG/ML Solution Auto-injector 1 Subcutaneous every 4 weeks Etodolac 400 MG Tablet TAKE 1 TABLET(400 MG) BY MOUTH TWICE DAILY WITH FOOD hydrOXYzine HCl 25 MG Tablet take 1 tablet daily oral , Notes to Pharmacist: *Pick strength-form from Astrid for eRX*Omeprazole 40 MG Capsule Delayed Release 1 capsule 30 minutes before morning meal Orally Once a day Taking Taltz 80 MG/ML Solution Auto-injector 1 Subcutaneous every 4 weeks Taking Etodolac 400 MG Tablet TAKE 1 TABLET(400 MG) BY MOUTH TWICE DAILY WITH FOOD Taking hydrOXYzine HCl 25 MG Tablet take 1 tablet daily oral , Notes to Pharmacist: *Pick strength-form from Astrid for eRX*Taking Omeprazole 40 MG Capsule Delayed Release 1 capsule 30 minutes before morning meal Orally Once a day * Allergies: N .K.D.A.no[Allergies Verified] Objective: * Vitals: * Examination: G eneral Examination: General appearance: a lert, well-nourished and in no acute distress , alert, well-nourished and in no acute distress. Head: n ormocephalic, atraumatic , normocephalic, atraumatic. Eyes: n ormal , normal. Skin: n o rash , no rash. Lungs: r espiratory effort normal , respiratory effort normal. P sychiatry: Affect / mood: n ormal affect, normal mood , normal affect, normal mood. N eurology: s peech normalspeech normal. Assessment: * Assessment: 1. A nkylosing spondylitis of multiple sites in spine - M45.0 (Primary) 2 .?Scleritis, unspecified laterality - H15.009 3 . O ther local lupus erythematosus - L93.2 4 . A dverse effect of unspecified drugs, medicaments and biological substances, initial encounter - T50.905A 5 . L umbar back pain - M54.50 ? flared up, will treat with p rednisone taper, continue taltz Plan: * Treatment: * Procedure Codes: * Follow Up: 3 Months * Billing Information: * Visit Code: 32168 Office Visit, Est Pt., Level 4. Modifiers: 95 * Procedure Codes: * Sign off status: Completed true * Provider: Pennie FRANCO MD Date: Generated for Marco roach/Shreya/Horacio on: 0 01/22/2025 08:34 AM CDT History and Physical Notes * HPI (History of Present Illness) Category Sub-Category Detail Notes Category Not es General Follow up Synchronous video/audio telecommunication with [employer] Patient has agreed to telehealth visit and is aware insurance will be billed for this visit Location: patient at home, physician in office hair falling out, tired, jaw pain , headaches, +facial redness, feet bother her on etodolac and taltz, meds helping, doing fine for the most part, feet aching, sees tray drier operator, had injections, wears orthotics, am stiffness: 30 minutes hx of L eye scleritis in 01/2022, resolved after using steroid eye drops failed Mobic and Celebrex, failed gabapentin, failed humira, it had caused headaches and fatigue, failed simponi aria, 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 She has seen Dr. Ribera and pain doctor, failed gabapentin. muscle relaxers made her groggy, Physical therapy did helpsome. Pyriformis injection did help. SI injections did not help. HLA-B27 (+) Brother: ankylosing spondylitis Mother: HLA-B27 (+) Examination Category Sub-Category Detail Notes Category Not es Neurology speech normal speech normal Psychiatry Affect / mood: normal affect, n ormal mood , normal affect, normal mood General Examination General appearance: alert, w ell-nourished and in no acute distress , alert, well-nourished and in no acute distress Head: normocephalic, atrau matic , normocephalic, atraumatic Eyes: normal , normal Lungs: respiratory effort n ormal , respiratory effort normal Skin: no rash , no rash
--- OUTSIDE RECORDS SUMMARY | 2025-01-22 08:34 | XMS_ITS | Encounter Summary ---
Author Organization [facility] Address [address] [place] [address] Care Team Providers Care Oyster Grower Name Role Phone Fe Aguilar MD Primary Care Provider [phone] Encounter Details Date Type Department Care Team (Late st Contact Info) Description 10/24/2024 [facility] [address] [place] [address] Fe Aguilar MD [address] [place] [address] Amoxicillin Social History Tobacco Use Types Packs/Day Years Used Date Smoking Tobacco: Never Smokeless Tobacco: Never Comments:Counseled by DR Alix hancock Alcohol Use Standard Drinks/Week Comments Not Currently 0 (1 standard drink = 0.6 oz pur e alcohol) At most one a month PHQ-2 Answer Date Recorded Patient Health Questionnaire-2 Score 0 10/24/2024 Comments No Sex and Gender Information Value Date Recorded Sex Assigned at Female 01/04/2025 11:27 AM TENON MACHINE OPERATOR Legal Sex Female 8:21 PM CDT Gender Identity Female 01/04/2025 11:27 AM TENON MACHINE OPERATOR Sexual Orientation Not on file documented as of this encounter Plan of Treatment Upcoming Encounters Date Type Department Care Team (Latest Contact Info) Description 05/01/2025 8:20 AM CDT Office Visit [facility] [place] [address] [address] [place] [address] Fe Aguilar MD [address] [place] [address] 05/23/2025 8:59 AM CDT Hospital Encounter [facility] [address] [place] [address] Leonel Mansfield MD [address] [facility] [address] [place] [address] 05/23/2025 8:59 AM CDT - 05/23/2025 9:25 AM CDT Surgery [facility] [address] [place] [address] Leonel Mansfield MD [address] [facility] [address] [place] [address] COLONOSCOPY SCREENING Scheduled Procedures Name Priority Associated Diagnoses Date/Ti me COLONOSCOPY SCREENING Screening for colon cancer 05/23/2025 8:59 AM CDT documented as of this encounter Visit Diagnoses Not on filedocumented in this encounter Additional Health Concerns Assessment Noted Time PHQ-9 Depression Total Score: 2 10/24/20 24 9:45 AM TENON MACHINE OPERATOR documented as of this encounter Care Teams Oyster Grower Relationship Specialty Start Date End Date Fe Aguilar MD [address] [address] PCP - General INTERNAL MEDICINE 09/23/22 documented as of this encounter
--- OUTSIDE RECORDS SUMMARY | 2025-01-22 08:34 | XMS_ITS | Clinical Summary ---
Author Organization [facility] [place] [address] Address [address] [place] [address] Care Team Providers Care Craft Coordinator Name Role Phone Fe Aguilar MD Primary Care Provider [phone] Allergies No known active allergies Medications hydrOXYzine (ATARAX) 25 mg tablet Take 1 tablet (25 mg total) by mouth nightly 1 Active omeprazole (PriLOSEC) 20 mg capsule Take 1 capsule (20 mg total) by mouth 2 (two) times a day 1 Active etodolac (LODINE) 400 mg tablet 1 Active cyclobenzaprine (FLEXERIL) 5 mg tablet Take 1 tablet (5 mg total) by mouth nightly as needed 3 Active hydrocortisone 2.5 % cream APPLY TOPICALLY TO THE AFFECTED AREA TWICE DAILY. 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 Multiple benign nevi of uppe r extremity, lower extremity, and trunk 03/02/2018 Pain of foot 06/06/2015 Lumbago 12/08/2012 Immunizations Immunization Administration Dates Next Due Influenza, Quadrivalent, Spl it, Intramuscular 07/31/2019 Influenza, Quadrivalent, Spl it, Preservative Free, Intramuscular 07/31/2020,08/02/2018,08/14/2014 Influenza, Trivalent, IM (MDV) 08/03/2013,2011 Influenza, Trivalent, Preser vative Free, Intramuscular 07/06/2017,07/28/2016,08/13/2015 Pfizer SARS-CoV-2 Monovalent Vaccination (12+ Yrs) PURPLE 02/10/2021,01/19/2021 Tdap 04/20/2021,08/20/2013 Surgical History Surgery Date Site/Laterality Comments WRIST FRACTURE SURGERY 11/08/2006 - 11/07/2007 Right Medical History Medical History Date Comments Spondylitis GERD (gastroesophageal reflux disease) Autoimmune disease 2019 Family History Medical History Relation Name Comments No Known Problems Father No Known Problems Mother Relation Name Status Comments Father Mother Social History Tobacco Use Types Packs/Day Years Used Date Smoking Tobacco: Never Smokeless Tobacco: Never Tobacco Cessation:Counseling Given: Not Answered Personal Safety Answer Date Recorded Getting School Help Needed Not on file 01/21 Comments Unknown Sex and Gender Information Value Date Recorded Sex Assigned at Not on file Legal Sex Female 11:06 PM APPLIED BEHAVIOR SPECIALIST Gender Identity Not on file Sexual Orientation Not on file Obstetrics History Last Filed Vital Signs Vital Sign Reading Time Taken Comments Blood Pressure 108/64 09/05/2023 2:38 PM CDT Pulse 92 09/05/2023 2:38 PM CDT Temperature 36.7 C (98.1 F) 09/05/2023 2:38 PM CDT Respiratory Rate 20 09/05/2023 2:38 PM CDT Oxygen Saturation 99% 09/05/2023 2:38 PM CDT Inhaled Oxygen Concentration - - Weight 70.3 kg (155 lb) 09/05/2023 2:38 PM CDT Height 167.6 cm (5' 6 ) 09/05/2023 2:38 PM CDT Body Mass Index 25.02 09/05/2023 2:38 PM CDT Plan of Treatment Health Maintenance Due Date Last Done Comments Breast Cancer Screening-Mammogram 1980 Cervical Cancer Screening 1980 Depression Screening 1980 Hepatitis C Screening 1980 Varicella Vaccines (1 of 2 - 13+ 2-dose series) 02/12/1993 Hepatitis B Screening 02/12/1998 Regular Well Visit/Exam 18-64 02/12/1998 Covid-19 Vaccine ( season) 2024 09/10/2021, 02/10/2021, 01/19/2021 Influenza Vaccine (#1) 2024 , 08/24/2022, 07/30/2021, Additional history exists DTaP/Tdap/Td Vaccine (3 - Td or Tdap) 04/20/2031 04/20/2021, 08/20/2013 HPV Vaccines Aged Out No longer eligi ble based on patient's age to complete this topic Pneumococcal vaccine <65 Aged Out No longer eligible based on patient's age to complete this topic [facility] Care Teams Craft Coordinator Relationship Specialty Start Date End Date Fe Aguilar MD [address] [place] [address] PCP - General Internal Medicine 09/05/23
--- OUTSIDE RECORDS SUMMARY | 2025-01-22 08:34 | XMS_ITS | Clinical Summary ---
Author Organization [facility] Address [address] [place] [address] Care Team Providers Care Ethics Officer Name Role Phone Fe Aguilar MD Primary Care Provider [phone] Allergies No known active allergies Medications etodolac (LODINE) 400 MG tablet 2 Active TALTZ 80 MG/ML Solution Auto-injector 4 Active hydrOXYzine (ATARAX) 50 MG tabletIndicatio ns:Primary insomnia Take half a pill to a full pill nightly as needed. 90 tablet 1 4 Active omeprazole (PRILOSEC) 40 MG capsuleIndicati ons:Gastroesoph ageal reflux disease without esophagitis Take 1 capsule (40 mg total) by mouth daily as needed. 90 capsule 1 4 Active Na sulfate-K sulfate-Mg sulfate (SUPREP BOWEL PREP KIT) 17.5-3.13-1.6 GM/177ML SolutionIndicat ions:Screening for colon cancer Take 177 mLs by mouth every 12 (twelve) hours. 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 Resolved Problems Problem Noted Date Diagnosed Date Resolved Date Screening for colon cancer 01/04/2025 0 01/08/2025 Encounters Date Type Department Care Team Description 01/04/2025 11:20 AM GUEST SERVICES ATTENDANT Office Visit [facility] Multispecialty Care - [address], [address] [place] [phone] Fe Aguilar MD Schaefer, Jennifer, SIMON New Patient; Consult For Colonoscopy (Colon screening) 01/04/2025 Orders Only [facility] [address] [place] [phone] Leonel Mansfield MD 01/04/2025 Travel 01/03/2025 MyChart Message Enc [place] [address] [facility] [address] [place] [address] Fe Aguilar MD Subconjunctival hemorrhage 10/24/2024 8:20 AM GUEST SERVICES ATTENDANT Office Visit [facility] [address] [facility] [address] [place] [address] Fe Aguilar MD Follow Up (miguelina-danlos syndrome /drug induced lupus); Sleep Problem; Ankylosing Spondylitis; GERD; Sore Throat (Symptoms since yesterday, would like to be tested for strep) 10/24/2024 Telephone [facility] [address] [place] [address] Fe Aguilar MD Question 10/24/2024 MyChart Message Enc [facility] [address] [facility] [address] [place] [address] Fe Aguilar MD Amoxicillin 10/24/2024 Travel from Last 3 Months Immunizations Name Administration Dates Next Due H1N1 2009 Influenza Vaccine 08/03/2013, 2 Influenza (Generic) 07/06/2017, 6,08/13/2015, 013,11/04/2012 Influenza Adult (Generic) 08/23/2024,07/2023,08/24/2022, 021,07/31/2020,07/31/2019,08/02/2018,05/2014 PFIZER COVID-19 (ORIGINAL FORMULATION, PURPLE CAP) mRNA, LNP-S, PF, 30 MCG/0.3 ML DOSE 09/10/2021,02/10/2021,01/19/2021 PFIZER COVID-19 BIVALENT (12 +) mRNA, LNP-S, PF, 30 MCG/0.3 ML DOSE 08/23/2024,09/20/2023 Tdap (Generic) 04/20/2021,08/20/2013 Family History Medical History Relation Comments Colon polyps Mother Relation Status Comments Mother Social History Tobacco Use Types Packs/Day Years Used Date Smoking Tobacco: Never Smokeless Tobacco: Never Tobacco Cessation:Counseling Given: No Comments:Counseled by DR Aguilar Alcohol Use Standard Drinks/Week Comments Not Currently 0 (1 standard drink = 0.6 oz pur e alcohol) At most one a month PHQ-2 Answer Date Recorded Patient Health Questionnaire-2 Score 0 01/04/2025 Comments No Sex and Gender Information Value Date Recorded Sex Assigned at Female 01/04/2025 11:27 AM GUEST SERVICES ATTENDANT Legal Sex Female 8:21 PM CDT Gender Identity Female 01/04/2025 11:27 AM GUEST SERVICES ATTENDANT Sexual Orientation Not on file Last Filed Vital Signs Vital Sign Reading Time Taken Comments Blood Pressure 112/71 01/04/2025 11:27 AM GUEST SERVICES ATTENDANT Pulse 74 01/04/2025 11:27 AM GUEST SERVICES ATTENDANT Temperature 36.8 C (98.3 F) 01/04/2025 11:27 AM GUEST SERVICES ATTENDANT Respiratory Rate 20 01/04/2025 11:27 AM GUEST SERVICES ATTENDANT Oxygen Saturation 99% 01/04/2025 11:27 AM GUEST SERVICES ATTENDANT Inhaled Oxygen Concentration - - Weight 71.2 kg (157 lb) 01/04/2025 11:27 AM GUEST SERVICES ATTENDANT Height 167.6 cm (5' 6 ) 01/04/2025 11:27 AM GUEST SERVICES ATTENDANT Body Mass Index 25.34 01/04/2025 11:27 AM GUEST SERVICES ATTENDANT Plan of Treatment Upcoming Encounters Date Type Department Care Team (Latest Contact Info) Description 05/01/2025 8:20 AM CDT Office Visit [facility] Multispecialty Care - [address] [place] [address] Fe Aguilar MD [address] [facility] [address] [place] [address] 05/23/2025 8:59 AM CDT Hospital Encounter [facility] [address] [place] [address] Leonel Mansfield MD [address] [facility] [address] [place] [address] 05/23/2025 8:59 AM CDT - 05/23/2025 9:25 AM CDT Surgery [facility] [address] [place] [address] Leonel Mansfield MD [address] [facility] [address] [place] [address] COLONOSCOPY SCREENING Scheduled Procedures Name Priority Associated Diagnoses Date/Ti me COLONOSCOPY SCREENING Screening for colon cancer 05/23/2025 8:59 AM CDT Health Maintenance Due Date Last Done Comments Hepatitis B Vaccines (1 of 3 - 19+ 3-dose series) 02/12/1999 Cervical Cancer Screening Pap with HPV Testing (Age 30 to 64) Every 5 Years 02/12/2010 COVID-19 Vaccine ( season) 2024 08/23/2024, 09/20/2023, 08/10/2022, Additional history exists Mammogram Screening 10/29/2024 10/29/2022, 08/25/2021, 08/20/2020 Annual Physical 10/24/2025 10/24/2024, 06/2023, 09/23/2022 Cervical Cancer Screening Pap Smear (Age 30 to 64) Every 3 Years 02/02/2026 02/02/2023 Cervical Cancer Screening with HPV 02/02/2026 DTaP, Tdap and Td Vaccines (3 - Td or Tdap) 04/20/2031 04/20/2021, 08/20/2013 Hepatitis C Completed 09/28/2022 Influenza Adult Completed 08/23/2024, 3, 08/24/2022, Additional history exists PHQ-2 (Physician [place]) Completed 01/04/2025 HPV Vaccines Aged Out No longer eligi ble based on patient's age to complete this topic Meningococcal B Vaccine Aged Out No l onger eligible based on patient's age to complete this topic Meningococcal Vaccine Aged Out No carol walt eligible based on patient's age to complete this topic Pneumococcal Vaccine: Pediatrics (0 to 5 Years) and At-Risk Patients (6 to 64 Years) Aged Out No longer eligible based on patient's age to complete this topic RSV Immunizations Under 20 Months Aged Out No longer eligible based on patient's age to complete this topic Procedures Procedure Name Priority Date/Time Associated Diagnosis Comments CULTURE STREP A Routine 10/24/2024 9:12 AM GUEST SERVICES ATTENDANT Sore throat Acute pharyngitis, unspecified etiology HEMOGLOBIN, GLYCOSYLATED Routine 10/24/2024 9:12 AM GUEST SERVICES ATTENDANT Annual physical exam General medical exam Screening for diabetes mellitus TSH W/REFLEX Routine 10/24/2024 9:12 AM GUEST SERVICES ATTENDANT Annual physical exam General medical exam Screening for hypothyroidism LIPID PANEL Routine 10/24/2024 9:12 AM GUEST SERVICES ATTENDANT Annual physical exam General medical exam Screening for hyperlipidemia COMPREHENSIVE METABOLIC PANEL Routine 10/24/2024 9:12 AM GUEST SERVICES ATTENDANT Annual physical exam General medical exam CBC W/DIFF AUTOMATED Routine 10/24/2024 9:12 AM GUEST SERVICES ATTENDANT Annual physical exam General medical exam COLLECTION VENOUS BLOOD VENIPUNCTURE Routine 10/24/2024 8:55 AM GUEST SERVICES ATTENDANT Annual physical exam General medical exam REMOVE IMPACTED CERUMEN INSTRUMENTATION UNILAT Routine 10/24/2024 8:20 AM GUEST SERVICES ATTENDANT Impacted cerumen of left ear STREP A RAPID Routine 10/24/2024 Sore throat URINALYSIS AUTO DIP Routine 10/24/2024 Annual physical exam General medical exam OUTSIDE CYTOPATH CERV/VAG INTERPRET (PAP) (SCAN ORDER) 02/02/2023 MAMMOGRAM GENERIC (SCAN ORDER) 10/29/2022 HEPATITIS C ANTIBODY Routine 09/28/2022 8:58 AM GUEST SERVICES ATTENDANT Annual physical exam Encounter for medical examination to establish care General medical exam Encounter for hepatitis C screening test for low risk patient from Last 3 Months or Most Recently Relevant to Health Maintenance Results * CULTURE STREP A (MG/SJS/SMD Only) (10/24/2024 9:12 AM GUEST SERVICES ATTENDANT) Pathologist [facility] THROAT CULTURE STREP A ONLY Negative for Group A Streptococci Negative for Group A Streptococci 10/25/2024 3:06 PM GUEST SERVICES ATTENDANT [facility] STRUCTURE OF ANTERIOR PORTION OF NECK / Unknown 10/24/2024 9:12 AM GUEST SERVICES ATTENDANT Fe Aguilar MD MICROBIOLOGY - GENERAL ORDERABLE S Final Result Performing Organization Address City/[facility]/ZIP Co de Phone Number [facility] [address] [place] [address], [place] [phone] * TSH W/REFLEX (10/24/2024 9:12 AM GUEST SERVICES ATTENDANT) Pathologist [facility] TSH 1.040 0.358 - 3.740 uIU/ML 10/24/2024 3:01 PM GUEST SERVICES ATTENDANT [facility] 10/24/2024 9:12 AM GUEST SERVICES ATTENDANT Fe Aguilar MD LABORATORY Final Result Performing Organization Address City/[facility]/ZIP Co de Phone Number [facility] [address] [place] [address], [place] [phone] * (ABNORMAL) HEMOGLOBIN, GLYCOSYLATED (10/24/2024 9:12 AM GUEST SERVICES ATTENDANT) Pathologist [facility] HGB A1C 5.4 4.5 - 6.2 % 10/24/2024 3:49 PM GUEST SERVICES ATTENDANT [facility] ESTIMATED AVG GLUCOSE 108(H) 74 - 106 MG/DL 10/24/2024 3:49 PM [facility] 10/24/2024 9:12 AM GUEST SERVICES ATTENDANT Fe Aguilar MD LABORATORY Final Result [facility] [address] [place] [address], * (ABNORMAL) COMPREHENSIVE METABOLIC PANEL (10/24/2024 9:12 AM GUEST SERVICES ATTENDANT) Pathologist [facility] SODIUM S/P/B 140 136 - 145 MMOL/L 10/24/2024 3:01 PM [facility] POTASSI[facility] S/P/B 4.3 3.5 - 5.1 MMOL/L 10/24/2024 3:01 PM [facility] CHLORIDE S/P/B 102 98 - 107 MMOL/L 10/24/2024 3:01 PM [facility] CO2 31.8 21 - 32 MMOL/L 10/24/2024 3:01 PM [facility] GLUCOSE 100(H) 70 - 99 MG/DL 10/24/2024 3:01 PM [facility] BUN 19(H) 7 - 18 MG/DL 10/24/2024 3:01 PM [facility] CREATININE S/P/B 0.77 0.55 - 1.02 MG/DL 10/24/2024 3:01 PM [facility] CALCIUM S/P/B 9.4 8.4 - 10.5 MG/DL 10/24/2024 3:01 PM [facility] BILIRUBIN TOTAL S/P/B 0.7 0.2 - 1.0 MG/DL 10/24/2024 3:01 PM [facility] ALKALINE PHOSPHATASE S/P/B 68 37 - 98 U/L 10/24/2024 3:01 PM GUEST SERVICES ATTENDANT [facility] AST 14(L) 15 - 37 U/L 10/24/2024 3:01 PM GUEST SERVICES ATTENDANT [facility] ALT 20 14 - 59 U/L 10/24/2024 3:01 PM GUEST SERVICES ATTENDANT [facility] TOTAL PROTEIN S/P/B 7.8 6.4 - 8.2 G/DL 10/24/2024 3:01 PM [facility] ALBUMIN S/P/B 3.9 3.4 - 5.0 G/DL 10/24/2024 3:01 PM GUEST SERVICES ATTENDANT [facility] ANION GAP 6.2 5 - 15 MMOL/L 10/24/2024 3:01 PM GUEST SERVICES ATTENDANT [facility] Comment:REFERENCE RANGE NOT ESTABLISHED OSMOLALITY (CALC) 292 MOSM/KG 024 3:01 PM [facility] Comment:REFERENCE RANGE NOT ESTABLISHED GFR ESTIMATE >90 >90 ML/MIN/1. 73 M2 10/24/2024 3:01 PM [facility] GFR NOTES GFR REFERENCE S: 10/24/2024 3:01 PM [facility] Comment: THE ESTIMATED GFR IS CALCULATED USING THE 2020 CKD-EPI EQUATION. THE FOLLOWING CATEGORIES FOR GRADING RENAL FUNCTION ARE RECOMMENDED BY THE INTERNATIONAL SOCIETY OF NEPHROLOGY (KDIGO 2012 CLINICAL PRACTICE GUIDELINE). G1,NORMAL OR HIGH: >89 ml/min/1.73 m2 G2,MILDLY DECREASED: 60-89 ml/min/1.73 m2 G3A,MILDLY TO MODERATELY DECREASED: 45-59 ml/min/1.73 m2 G3B,MODERATELY TO SEVERELY DECREASED: 30-44 ml/min/1.73 m2 G4,SEVERELY DECREASED: 15-29 ml/min/1.73 m2 G5,KIDNEY FAILURE: <15 ml/min/1.73 m2 10/24/2024 9:12 AM GUEST SERVICES ATTENDANT Fe Aguilar MD LABORATORY Final Result [facility] [address] [place] [address], * (ABNORMAL) LIPID PANEL (10/24/2024 9:12 AM GUEST SERVICES ATTENDANT) Pathologist [facility] CHOLESTEROL 192 <200 MG/DL 10/24/2024 3:01 PM GUEST SERVICES ATTENDANT [facility] TRIGLYCERIDES 54 <150 MG/DL 10/24/2024 3:01 PM GUEST SERVICES ATTENDANT [facility] HDL 68 >40 MG/DL 10/24/2024 3:01 PM GUEST SERVICES ATTENDANT [facility] LDL-C 113(H) <100 MG/DL 10/24/2024 3:01 PM GUEST SERVICES ATTENDANT [facility] VLDL CALCULATION 11 5 - 28 MG/DL 10/24/2024 3:01 PM GUEST SERVICES ATTENDANT [facility] CHOL/HDL RATIO 2.8 0.0 - 4.0 10/24/2024 3:01 PM GUEST SERVICES ATTENDANT [facility] LDL/HDL 1.7 0.41 - 2.13 10/24/2024 3:01 PM GUEST SERVICES ATTENDANT [facility] NON HDL CHOLESTEROL 124 <140 MG/DL 10/24/2024 3:01 PM GUEST SERVICES ATTENDANT [facility] 10/24/2024 9:12 AM GUEST SERVICES ATTENDANT Fe Aguilar MD LABORATORY Final Result [facility] [address] [place] [address], * (ABNORMAL) CBC W/DIFF AUTOMATED (10/24/2024 9:12 AM GUEST SERVICES ATTENDANT) WBC 5.06 4.00 - 10.80 x10'3/uL 10/24/2024 2:50 PM GUEST SERVICES ATTENDANT [facility] RBC 4.94 4.10 - 5.40 x10'6/uL 10/24/2024 2:50 PM GUEST SERVICES ATTENDANT [facility] HGB 14.5 12.0 - 16.0 G/DL 10/24/2024 2:50 PM [facility] HCT 45.2 36.0 - 47.0 % 10/24/2024 2:50 PM [facility] MCV 91.5 78.0 - 100.0 FL 10/24/2024 2:50 PM [facility] MCH 29.4 27.0 - 31.0 PG 10/24/2024 2:50 PM GUEST SERVICES ATTENDANT [facility] MCHC 32.1(L) 33.0 - 36.0 G/DL 10/24/2024 2:50 PM [facility] RDW 12.4 11.5 - 14.5 % 10/24/2024 2:50 PM [facility] PLT 276 150 - 350 x10'3/uL 10/24/2024 2:50 PM [facility] MPV 10.2 7.4 - 10.4 FL 10/24/2024 2:50 PM [facility] DIFFERENTIAL TYPE AUTOMATED DIFFERENTIAL 10/24/2024 2:50 PM [facility] NEUTROPHILS % 56.1 % 10/24/2024 2:50 PM [facility] LYMPHOCYTES % 31.2 % 10/24/2024 2:50 PM [facility] MONOCYTES % 9.7 % 10/24/2024 2:50 PM [facility] EOSINOPHILS % 2.2 % 10/24/2024 2:50 PM [facility] BASOPHILS % 0.6 % 10/24/2024 2:50 PM [facility] IMMATURE GRANS % 0.2 % 10/24/2024 2:50 PM [facility] ABS. NEUTROPHILS 2.84 1.60 - 8.30 x10'3/uL 10/24/2024 2:50 PM GUEST SERVICES ATTENDANT [facility] ABS. LYMPHOCYTES 1.58 0.80 - 4.70 x10'3/uL 10/24/2024 2:50 PM GUEST SERVICES ATTENDANT [facility] ABS. MONOCYTES 0.49 0.00 - 1.50 x10'3/uL 10/24/2024 2:50 PM GUEST SERVICES ATTENDANT [facility] ABS. EOSINOPHILS 0.11 0.00 - 0.40 x10'3/uL 10/24/2024 2:50 PM GUEST SERVICES ATTENDANT [facility] ABS. BASOPHILS 0.03 0.00 - 0.20 x10'3/uL 10/24/2024 2:50 PM GUEST SERVICES ATTENDANT [facility] ABS. IMMATURE GRANULOCYTES 0.01 0.00 - 0.03 x10'3/uL 10/24/2024 2:50 PM GUEST SERVICES ATTENDANT [facility] 10/24/2024 9:12 AM GUEST SERVICES ATTENDANT Fe Aguilar MD LABORATORY Final Result [facility] [address] [place] [address], * REMOVE IMPACTED CERUMEN INSTRUMENTATION UNILAT (10/24/2024 8:20 AM GUEST SERVICES ATTENDANT) Narrative Fe Aguilar MD - 10/24/2024 8:20 AM GUEST SERVICES ATTENDANT eF Aguilar MD 10/24/2024 12:37 PM *Ear Cerumen Removal Date/Time: 10/24/2024 8:20 AM Performed by: Fe Aguilar MD Authorized by: Fe Aguilar MD Location details: left ear Patient tolerance: patient tolerated the procedure well with no immediate complications Comments: Impacted wax removed from the left ear Procedure type: curette Sedation: Patient sedated: no Fe Aguilar MD PROCEDURE/MINOR SURGICAL ORDERAB LES Final Result * (ABNORMAL) URINALYSIS AUTO DIP (10/24/2024) COLOR (U) YELLOW YELLOW [address], [place] TRANSPARENCY CLEAR CLEAR [address], [place] GLUCOSE (U) NEGATIVE NEGATIVE MG/DL [address], [place] BILIRUBIN (U) 1+ (SMALL)(A) NEGATIVE [address], [place] KETONES MG/DL (U) NEGATIVE NEGATIVE MG/DL [address], [place] SPECIFIC GRAVITY (U) 1.025 1.001 - 1.035 [address], [place] BLOOD (U) TRACE (Non Hemolyzed, Intact)(A) NEGATIVE [address], [place] U PH 5.5 5.0 - 9.0 [address], [place] PROTEIN (U) NEGATIVE NEGATIVE mg/dL [address], [place] UROBILINOGEN 0.2 0.2 - 1.0 EU/dL = mg/dL [address], [place] NITRITES NEGATIVE NEGATIVE MG/DL [address], [place] LEUKOCYTES (U) NEGATIVE NEGATIVE MG[address], [place] URINE SPECIMEN OBTAINED BY CLEAN CATCH PROCEDURE / Unknown 10/24/2024 us Fe Aguilar MD URINE ORDERABLES Final Result Performing Organization Address City/[facility]/ZIP Co de Phone Number [address], [place] [address] [place] [address], [place] [phone] * STREP A RAPID (10/24/2024) Pathologist [facility] RAPID STREP TEST NEGATIVE NEGATIVE [address], [facility] Internal Control: VALID VALID [address], [place] STRUCTURE OF ANTERIOR PORTION OF NECK / Unknown 10/24/2024 us Fe Aguilar MD MICROBIOLOGY - GENERAL ORDERABLE S Final Result [address], [place] [address] [place] [address], [place] [phone] * PAP SMEAR (02/02/2023) 02/02/2023 us [facility] Scanned SCANNING Final Resu lt * MAMMOGRAM GENERIC (10/29/2022) Anatomical Region Laterality Modality Other 10/29/2022 us [facility] Scanned SCANNING Final Resu lt * HEPATITIS C ANTIBODY (09/28/2022 8:58 AM GUEST SERVICES ATTENDANT) HEPATITIS C AB NON-REACTI VE NON-REACT SOLITARIO 09/28/2022 8:45 PM GUEST SERVICES ATTENDANT [facility] Comment: ANTIBODIES TO HCV NOT DETECTED. DOES NOT EXCLUDE THE POSSIBILITY OF EXPOSURE TO HCV. 09/28/2022 8:58 AM GUEST SERVICES ATTENDANT Fe Aguilar MD LABORATORY Final Result [facility] [address] [place] [address], [id number] from Last 3 Months or Most Recently Relevant to Health Maintenance Insurance [employer] A[employer] Care Teams Ethics Officer Relationship Specialty Start Date End Date Fe Aguilar MD [address] [facility] [address] [place] [address] PCP - General INTERNAL MEDICINE 09/23/22
--- OUTSIDE RECORDS SUMMARY | 2025-01-22 08:34 | XMS_ITS ---
Author Organization [facility] Address [address] [place] [address] Care Team Providers Care Buncher Machine Name Role Phone Fe Aguilar MD Primary Care Provider Myesha Travis [phone] REASON FOR VISIT Painful pus filled bumps on my face Encounters Encounter Location Date Provider Diagnosis [facility] [address] [place] [address] 01/18/2025 Myesha Elliott Plan Of Treatment Next Appt Details Provider Name:Myesha Elliott, 02/01 10:15:00 AM, [address], [place], [address], Progress Notes * Ngozi HURSTOB:1980 (44 yo F)Acc No.[id number]:01/18/2025 Patient: Aaliyah MARTINEZ :1980 A ge:44 Y S ex:Female Address:[address] [facility] [address] * true * Date: Generated for Printi ng/Faxing/eTransmitting on: 0 01/22/2025 08:34 AM CDT
--- OUTSIDE RECORDS SUMMARY | 2025-01-22 08:34 | XMS_ITS | Encounter Summary ---
Author Organization [facility] Address [address] [place] [address] Care Team Providers Care Public Health Microbiologist Name Role Phone Fe Aguilar MD Primary Care Provider Encounter Details Date Type Department Care Team (Late st Contact Info) Description 10/13/2023 General Sentimenthart Message [facility] [address] [address] [address] [place] [address] Fe Aguilar MD [address] [place] [address] [phone] Blood work Social History Tobacco Use Types Packs/Day Years [...] Sex Assigned at Female 01/04/2025 11:27 AM WARBLE SAW OPERATOR Legal Sex Female 8:21 PM CDT Gender Identity Female 01/04/2025 11:27 AM WARBLE SAW OPERATOR Sexual Orientation Not on file documented as of this encounter Plan of Treatment Upcoming Encounters Date Type Department Care Team (Latest Contact Info) Description 05/01/2025 8:20 AM CDT Office Visit [facility] Medical [facility] Multispec[facility] [address] [address] [address] [place] [address] Fe Aguilar MD [address] [place] [address] [address] [place], [place] [phone] 05/23/2025 8:59 AM CDT Hospital Encounter [facility] [address] [place] [address] Leonel Mansfield MD 3 [facility] [address] [place] [address] 05/23/2025 8:59 AM CDT - 05/23/2025 9:25 AM CDT Surgery [facility] [address] [place] [address] Leonel Mansfield MD 3 [facility] [address] [place] [address] COLONOSCOPY SCREENING Scheduled Procedures Name Priority Associated Diagnoses Date/Ti me COLONOSCOPY SCREENING Screening for colon cancer 05/23/2025 8:59 AM CDT documented as of this encounter Visit Diagnoses Not on filedocumented in this encounter Care Teams Public Health Microbiologist Relationship Specialty Start Date End Date Fe Aguilar MD [address] [facility] [address] [place] [address] PCP - General INTERNAL MEDICINE 09/23/22 documented as of this encounter
--- OUTSIDE RECORDS SUMMARY | 2025-01-22 08:34 | XMS_ITS | Referral Summary ---
Author Organization [facility] [address] Address [address] [place] [address] Care Team Providers Care Sales Manager [place] Name Role Phone Fe Aguilar MD Primary Care Provider [phone] Allergies No known active allergies Medications hydrOXYzine [...] Vaccination (12+ Yrs) PURPLE 02/10/2021,01/19/2021 Tdap 04/20/2021,08/20/2013 Social History Tobacco Use Types Packs/Day Years Used Date Smoking Tobacco: Never Smokeless Tobacco: Never Tobacco Cessation:Counseling Given: Not Answered Personal Safety Answer Date Recorded Getting School Help Needed Not on file 01/21 Comments Unknown Sex and Gender Information Value Date Recorded Sex Assigned at Not on file Legal Sex Female 11:06 PM RELAY MOTORMAN Gender Identity Not on file Sexual Orientation [...] 09/05/2023 2:38 PM CDT Plan of Treatment [place] [address] [facility] [facility] HMO [facility] Care Teams Sales Manager [place] Relationship Specialty Start Date End Date Fe Aguilar MD [address] [place] [address] PCP - General Internal Medicine 09/05/23
--- OUTSIDE RECORDS SUMMARY | 2025-01-22 08:34 | XMS_ITS | Encounter Summary ---
Author Organization [facility] Address [address] [place] [address] Care Team Providers Care Insurance Salesman Name Role Phone Fe Aguilar MD Primary Care Provider [phone] Encounter Details Date Type Department Care Team (Latest Contact Info) Description 01/03/2025 [facility] [address] [address] Fe Aguilar MD [address] [place] [address] [phone] Subconjunctival hemorrhage Social History Tobacco Use Types Packs/Day Years [...] Sex Assigned at Female 01/04/2025 11:27 AM AUTOMOBILE DESIGNER Legal Sex Female 8:21 PM CDT Gender Identity Female 01/04/2025 11:27 AM AUTOMOBILE DESIGNER Sexual Orientation Not on file documented as of this encounter Plan of Treatment Upcoming Encounters Date Type Department Care Team (Latest Contact Info) Description 05/01/2025 8:20 AM CDT [facility] [address] [address] Fe Aguilar MD [address] [place] [address] 05/23/2025 8:59 AM CDT Hospital Encounter [facility] [address] [place] [address] Leonel Mansfield MD 3 [facility] [address] [place] [address] 05/23/2025 8:59 AM CDT - 05/23/2025 9:25 AM CDT Surgery [facility] [address] [place] [address] Leonel Mansfield MD 3 [facility] [address] [place] [address] COLONOSCOPY SCREENING Scheduled Procedures Name Priority Associated Diagnoses Date/Ti me COLONOSCOPY SCREENING Screening for colon cancer 05/23/2025 8:59 AM CDT documented as of this encounter Visit Diagnoses Not on filedocumented in this encounter Additional Health Concerns Assessment Noted Time PHQ-9 Depression Total Score: 2 10/24/20 24 9:45 AM AUTOMOBILE DESIGNER documented as of this encounter Care Teams Insurance Salesman Relationship Specialty Start Date End Date Fe Aguilar MD [address] [facility] [address] [place] [address] PCP - General INTERNAL MEDICINE 09/23/22 documented as of this encounter
--- OUTSIDE RECORDS SUMMARY | 2025-01-22 08:34 | XMS_ITS | Encounter Summary ---
Author Organization [facility] Address [address] [place] [address] Phone Care Team Providers Care Harmonic Analyst Name Role Phone Cas Rizo MD Primary Care Provider [phone] Reason for Visit * Reason Comments Medication Refill Encounter Details Date Type Department Care Team (Late st Contact Info) Description 04/03/2021 Refill [facility] - Gastroenterology [facility] [address] [place] [address] Negra Childress Cinthia, PAC [address] [place] [address] Medication Refill Social History Tobacco Use Types Packs/Day Years Used Date Smoking Tobacco: Never Smokeless Tobacco: Never Alcohol Use Standard Drinks/Week Comments Yes 0 (1 standard drink = 0.6 oz pur e alcohol) 1x monthly Sexually Active Control Partners Comments Yes Comments No Sex and Gender Information Value Date Recorded Sex Assigned at Not on file Legal Sex Female 2:[address] RUNNER Gender Identity Not on file Sexual Orientation Not on file documented as of this encounter Miscellaneous Notes * Telephone Encounter - Stacey Clancy CMA - 04/03/2021 9:36 AM CDT Pharmacy requesting refill of: Requested Prescriptions Pending Prescriptions Disp Refills ??? omeprazole (PriLOSEC) 20 MG CAPSULE DELAYED RELEASE [Pharmacy Med Name: OMEPRAZOLE 20MG CAPSULES] 180 Capsule 0 Sig: TAKE 1 CAPSULE BY MOUTH TWICE DAILY Last fill: 01/06/2021 Patients last OV with GI: 01/06/2021 Next Office Visit with GI: None scheduled documented in this encounter Plan of Treatment Not on file documented as of this encounter Visit Diagnoses Diagnosis Dysphagia, unspecified type documented in this encounter Care Teams Harmonic Analyst Relationship Specialty Start Date End Date Cas Rizo MD [address] [address] PCP - General Family Medicine 12/11/20 documented as of this encounter
--- OUTSIDE RECORDS SUMMARY | 2025-01-22 08:34 | XMS_ITS | Clinical Summary ---
Author Organization [facility] Address [address] [place] [place] [address] Care Team Providers Care Shear Assembler Name Role Phone Miles Quezada DO Primary Care Provider Source Comments [facility],non-owned Affiliates and Associated Physician Practices is amultiple site organization consisting of ambulatory clinics and hospital sitesin [place], [place], [place] and [place]. This disclosure is being madepursuant to the Care Everywhere program and may not contain all information available regarding this patient. Last updated 18.[facility] Allergies No known active allergies Medications * [...] r extremity, lower extremity, and trunk 03/02/2018 Family History Medical History Relation Name Comments Other Mother joint problems Other - Anesthesia Mother Asthma Neg Hx CVA Neg Hx Cancer - Breast Neg Hx Cancer - Other Neg Hx Cancer - Skin, Melanoma Neg Hx Cancer - Skin, Non Melanoma Neg Hx Eczema Neg Hx Hemophilia Neg Hx Psoriasis Neg Hx Relation Name Status Comments Father Alive Mother Alive Social History Tobacco Use Types Packs/Day Years [...] Comments Blood Pressure 100/58 01/01/2018 3:05 PM CERTIFIED FIRST ASSISTANT Pulse 70 01/01/2018 3:05 PM CERTIFIED FIRST ASSISTANT Temperature 36.7 C (98.1 F) 01/01/2018 3:05 PM CERTIFIED FIRST ASSISTANT Respiratory Rate 16 01/01/2018 3:05 PM CERTIFIED FIRST ASSISTANT Oxygen Saturation 100% 01/01/2018 3:05 PM CERTIFIED FIRST ASSISTANT Inhaled Oxygen Concentration - - Weight 70.3 kg (155 lb) 01/01/2018 3:05 PM CERTIFIED FIRST ASSISTANT Height 167.6 cm (5' 6 ) 01/01/2018 3:05 PM CERTIFIED FIRST ASSISTANT Body Mass Index 25.02 01/01/2018 3:05 PM CERTIFIED FIRST ASSISTANT Plan of Treatment Health Maintenance Due Date Last Done Comments LIPID TESTING 1980 MAMMOGRAM 1980 PAP SMEAR 1980 HIV SCREENING 02/12/1995 HEPATITIS C SCREENING 02/08/1998 DTAP/TDAP/TD VACCINES (1 - Tdap) 02/12/1999 HEPATITIS B VACCINE (1 of 3 - 19+ 3-dose series) 02/12/1999 COVID-19 VACCINE (2023-2 5 season) 2024 INFLUENZA VACCINE (#1) 2024 DEPRESSION SCREENING 11/08/2024 ZOSTER VACCINE (1 of 2) 02/12/2030 HIB VACCINE Aged Out No longer eligi ble based on patient's age to complete this topic HPV VACCINE Aged Out No longer eligi ble based on patient's age to complete this topic MENINGOCOCCAL (Group B) VACC INE SHARED DECISION-MAKING Aged Out No longer eligibl e based on patient's age to complete this topic MENINGOCOCCAL GROUPS A/C/Y/W VACCINE Aged Out No longer eligible b ased on patient's age to complete this topic PNEUMOCOCCAL VACCINE Aged Out No long er eligible based on patient's age to complete this topic Care Teams Shear Assembler Relationship Specialty Start Date End Date Miles Quezada DO PCP - General 03/02/18
--- OUTSIDE RECORDS SUMMARY | 2025-01-22 08:34 | XMS_ITS | Clinical Summary ---
Author Organization [facility] Address [address] [place] [phone] Phone Care Team Providers Care Java Portal Developer Name Role Phone Miles Quezada DO Primary Care Provider Social History Tobacco Use Types Packs/Day Years Used Date Smoking Tobacco: Never Assessed Comments Unknown Sex and Gender Information Value Date Recorded Sex Assigned at Not on file Legal Sex Female 10:05 AM CDT Gender Identity Not on file Sexual Orientation Not on file Plan of Treatment Health Maintenance Due Date Last Done Comments DTAP/TDAP/TD VACCINES (1 - Tdap) 02/12/1999 HEPATITIS B VACCINES (1 of 3 - 19+ 3-dose series) 02/12/1999 CERVICAL CANCER SCREENING 02/12/2010 BREAST CANCER SCREENING 2020 INFLUENZA VACCINE (#1) 2024 HPV VACCINES Aged Out No longer eligi ble based on patient's age to complete this topic Care Teams Java Portal Developer Relationship Specialty Start Date End Date Miles Quezada DO PCP - General Internal Medicine 04/16/17
--- OUTSIDE RECORDS SUMMARY | 2025-01-22 08:35 | XMS_ITS | Encounter Summary ---
Author Organization [facility] Address [address] [place] [address] Care Team Providers Care Embedded Engineer Name Role Phone Fe Aguilar MD Primary Care Provider [phone] Encounter Details Date Type Department Care Team (Late st Contact Info) Description 02/19/2023 Dojohart Message Enc [facility] Medical [facility] [address] [address] Fe Aguilar MD [address] [place] [address] [phone] Strep A Social History Tobacco Use Types Packs/Day Years Used Date Smoking Tobacco: Never Smokeless Tobacco: Never Alcohol Use Standard Drinks/Week Comments Not Currently 0 (1 standard drink = 0.6 oz pur e alcohol) At most one a month PHQ-2 Answer Date Recorded PHQ-2 Score - If the patient scores above 3, please move on to questions 3-9 0 09/23/2022 Comments No Sex and Gender Information Value Date Recorded Sex Assigned at Female 01/04/2025 11:27 AM LOKIE ENGINEER Legal Sex Female 8:21 PM CDT Gender Identity Female 01/04/2025 11:27 AM LOKIE ENGINEER Sexual Orientation Not on file documented as of this encounter Plan of Treatment Upcoming Encounters Date Type Department Care Team (Latest Contact Info) Description 05/01/2025 8:20 AM CDT Office Visit [facility] Medical [facility] - [address] [address] Fe Aguilar MD [address] [place] [address] 05/23/2025 8:59 AM CDT Hospital Encounter [facility] [address] [place] [address] Leonel Mansfield MD 3 [facility] [address] [place] [address] 05/23/2025 8:59 AM CDT - 05/23/2025 9:25 AM CDT Surgery [facility] [address] [place] [address] Leonel Mansfield MD [address] [address] COLONOSCOPY SCREENING Scheduled Procedures Name Priority Associated Diagnoses Date/Ti me COLONOSCOPY SCREENING Screening for colon cancer 05/23/2025 8:59 AM CDT documented as of this encounter Visit Diagnoses Not on filedocumented in this encounter Care Teams Embedded Engineer Relationship Specialty Start Date End Date Fe Aguilar MD [address] [facility] [address] [place] [address] PCP - General INTERNAL MEDICINE 09/23/22 documented as of this encounter
--- OUTSIDE RECORDS SUMMARY | 2025-01-22 08:35 | XMS_ITS | Encounter Summary ---
Author Organization [facility] Address [address] [place] [address] Care Team Providers Care Tube Making Machine Operator Name Role Phone Fe Aguilar MD Primary Care Provider [phone] Encounter Details Date Type Department Care Team (Late st Contact Info) Description 05/27/2023 CallMDhart Message [facility] [address] [address] [place] [address] Fe Aguilar MD [address] [place] [address] [place] Social History Tobacco Use Types Packs/Day Years Used Date Smoking Tobacco: Never Smokeless Tobacco: Never Comments:Counseled by DR Alix hancock Alcohol Use Standard Drinks/Week Comments Not Currently 0 (1 standard drink = 0.6 oz pur e alcohol) At most one a month PHQ-2 Answer Date Recorded Patient Health Questionnaire-2 Score 0 03/24/2023 Comments No Sex and Gender Information Value Date Recorded Sex Assigned at Female 01/04/2025 11:27 AM DISHWASHING MACHINE REPAIRER Legal Sex Female 8:21 PM CDT Gender Identity Female 01/04/2025 11:27 AM DISHWASHING MACHINE REPAIRER Sexual Orientation Not on file documented as of this encounter Plan of Treatment Upcoming Encounters Date Type Department Care Team (Latest Contact Info) Description 05/01/2025 8:20 AM CDT Office Visit [facility] Medical [facility] Multispecialty [address] [address] [address] [place] [address] Fe Aguilar MD [address] [place] [address] [phone] 05/23/2025 8:59 AM CDT Hospital Encounter [facility] [address] [place] [address] Leonel Mansfield MD 3 [facility] [address] [place] [address] 05/23/2025 8:59 AM CDT - 05/23/2025 9:25 AM CDT Surgery [facility] [address] [place] [address] Leonel Mansfield MD [address] [address] COLONOSCOPY SCREENING Scheduled Procedures Name Priority Associated Diagnoses Date/Ti me COLONOSCOPY SCREENING Screening for colon cancer 05/23/2025 8:59 AM CDT documented as of this encounter Visit Diagnoses Not on filedocumented in this encounter Care Teams Tube Making Machine Operator Relationship Specialty Start Date End Date Fe Aguilar MD [address] [facility] [address] [place] [address] PCP - General INTERNAL MEDICINE 09/23/22 documented as of this encounter
--- OUTSIDE RECORDS SUMMARY | 2025-01-22 08:35 | XMS_ITS | Patient Health Record ---
Author Organization [facility] lamine Address [address] [facility] [address] [place] [address] Care Team Providers Care Insole Department Worker Name Role Phone Jeff WRIGHT, Fe Primary Care Provider Marianna EllitotKristeng Unavailable [phone] Allergies No Known Allergies Results Component Value Reference Range Notes eGFR Reviewed date:08/01/2024 07:37:37 PM Interpretation: Performing Lab:[facility] , [facility] [address] Notes/Report: eGFR >90 >=60 mL/min/1.73 m2 Interpretive Data Reference Interval Normal >/= 90 mL/min/1.73m2 Mildly decreased* 60 - 89 mL/min/1.73m2 Mildly to moderately decreased 45 - 59 mL/min/1.73m2 Moderately to severely decreased 30 - 44 mL/min/1.73m2 Severely decreased 15 - 29 mL/min/1.73m2 Kidney Failure < 15 mL/min/1.73m2 *Relative to young adult level Estimated glomerular filtration rate is determined by the 2020 CKD-EPI equation recommended by the National Kidney Foundation (A Unifying Approach to GFR Estimation: Recommendations of the NKF-ASK Task Force on Reassessing the Inclusion of Race in Diagnosing Kidney Disease, JASN 2020). The CKD-EPI equation should not be used for patients with unstable renal function and has not been validated in children and those over 70. Current interpretive data was last reviewed 2021. SSB Ab Reviewed date:08/02/2024 03:08:10 PM Interpretation: Performing Lab:[facility] , [address] [facility] [address] Notes/Report: SS B Antibody <0.2 <=0.9 Ab Index Interpretive Data Negative: < 1.0 Ab Index Positive: > or = 1.0 Ab Index Current interpretive data was last revised on 2017. SSA Ab Reviewed date:08/02/2024 03:08:10 PM Interpretation: Performing Lab:[facility] , [address] [facility]. [facility] [address] Notes/Report: SS A Antibody <0.2 <=0.9 Ab Index Interpretive Data Negative: < 1.0 Ab Index Positive: > or = 1.0 Ab Index Current interpretive data was last revised on 2017. Waters Ab. Reviewed date:08/02/2024 03:08:10 PM Interpretation: Performing Lab:[facility] , [address] [place] [address]. [facility] [id number] Notes/Report: Waters Antibody <0.2 <=0.9 Ab Index Interpretive Data Negative: < 1.0 Ab Index Positive: > or = 1.0 Ab Index Current interpretive data was last revised on 2017. SCL 70 Antibodies Reviewed date:08/02/2024 03:08:10 PM Interpretation: Performing Lab:[facility] , [facility]. [facility] [address] Notes/Report: Scl 70 Ab, IgG <0.2 <=0.9 Ab Index Interpretive Data Negative: < 1.0 Ab Index Positive: > or = 1.0 Ab Index Current interpretive data was last revised on 2017. Ribonuclear Protein (LEAD CUSTOMER SERVICE REPRESENTATIVE) Ab Reviewed date:08/02/2024 03:08:10 PM Interpretation: Performing Lab:[facility] , [address] [facility]. [facility] [address] Notes/Report: LEAD CUSTOMER SERVICE REPRESENTATIVE Antibody 0.5 <=0.9 Ab Index Interpretive Data Negative: < 1.0 Ab Index Positive: > or = 1.0 Ab Index Current interpretive data was last revised on 2017. Emilee 1 Ab Reviewed date:08/02/2024 03:08:10 PM Interpretation: Performing Lab:[facility] , [address] [facility]. [facility] [address] Notes/Report: Emilee 1 Ab, IgG <0.2 <=0.9 Ab Index Interpretive Data Negative: < 1.0 Ab Index Positive: > or = 1.0 Ab Index Current interpretive data was last revised on 2017. MASON Screen Reviewed date:08/02/2024 03:08:10 PM Interpretation: Performing Lab:[facility] , [address] [place] [address]. [facility] [address] Notes/Report: MASON Screen Positive Negative Interpretive Data Positive Screens will be reflexed to specific testing for Antibodies against the following antigens: Emilee-1 Ab, LEAD CUSTOMER SERVICE REPRESENTATIVE Ab, Scl-70 Ab, Waters Ab, SS-A/Ro Ab, and SS-B/La Ab. Further testing for dsDNA, Centromere, or Ribosomal P antibodies is suggested in patient with a positive screen and negative specific antibodies. Current interpretive data was last revised on 2023. DS DNA Reviewed date:08/02/2024 03:08:09 PM Interpretation: Performing Lab:[facility] , [address] [place] [address]. [facility] [id number] Notes/Report: Double Stranded DNA, Ren 4.0 <=4.0 IUnits/mL Interpretive Data Negative: < or = 4 IUnits/mL Indeterminate: 5 - 9 IUnits/mL Positive: > or = 10 IUnits/mL Current interpretive data was last revised on 2017. Differential Automated Reviewed date:08/01/2024 02:56:04 PM Interpretation: Performing Lab:[facility] , [address] [place] [address]. [facility] [address] Notes/Report: Neut Abs 4.3 1.5-6.5 K/cumm ImmGran Abs 0.0 0.0-0.1 K/cumm Lymphocyte Abs 1.9 0.8-3.3 K/cumm Sabine Abs 0.7 0.2-0.8 K/cumm Eos Abs 0.1 0.0-0.5 K/cumm Baso Abs 0.1 0.0-0.1 K/cumm Neut Pct 60.4 Interpretive Data Percent cell count reference ranges are not reported, since discordance with absolute values may lead to misinterpretation of CBC data. Current Interpretive Data was last revised on 2018. ImmGran Pct 0.3 Interpretive Data Percent cell count reference ranges are not reported, since discordance with absolute values may lead to misinterpretation of CBC data. Current Interpretive Data was last revised on 2018. Lymph Pct 27.3 Interpretive Data Percent cell count reference ranges are not reported, since discordance with absolute values may lead to misinterpretation of CBC data. Current Interpretive Data was last revised on 2018. Sabine Pct 9.6 Interpretive Data Percent cell count reference ranges are not reported, since discordance with absolute values may lead to misinterpretation of CBC data. Current Interpretive Data was last revised on 2018. Eos Pct 1.7 Interpretive Data Percent cell count reference ranges are not reported, since discordance with absolute values may lead to misinterpretation of CBC data. Current Interpretive Data was last revised on 2018. Baso Pct 0.7 Interpretive Data Percent cell count reference ranges are not reported, since discordance with absolute values may lead to misinterpretation of CBC data. Current Interpretive Data was last revised on 2018. Sed Rate Reviewed date:08/01/2024 02:56:04 PM Interpretation: Performing Lab:[facility] , [address] [facility]. [place] [address] Notes/Report: ESR 10 1-20 mm/hr QTB Gold Reviewed date:08/03/2024 09:55:25 PM Interpretation: Performing Lab:[facility] , [facility] [facility]. [place] [address] Notes/Report: QuantiFERON TB Gold Negative Negative No interferon-gamma response to M. tuberculosis antigens was detected. Latent infection with M. tuberculosis is unlikely. A single negative result does not exclude infection with M. tuberculosis. In patients at high risk for M.tuberculosis infection, a second test should be considered in accordance with the 2017 ATS/IDSA/CDC Clinical Practice Guidelines for Diagnosis of Tuberculosis in Adults and Children [Mayten KALEIGH et. al. Clin. Infect. Dis. 2017;64(2):111-115]. The reference range for the 'TB1 Ag minus Nil Result' and 'TB2 Ag minus Nil Result' is an Interferon-gamma level <0.35 IU/mL. TB-Nil 0.21 TB2-Nil -0.31 Mitogen-Nil 2.22 NIL 0.47 Test Performed by: [facility] [address] [place] [address] [employer] Objects Report Developer: Nacho Serrano Ph.D.; CLIA# [id number] Histone ab Reviewed date:08/10/2024 10:19:14 AM Interpretation: Performing Lab:[facility] , [address] [place] [address]. [place] [address] Notes/Report: Histone Ab 1.4 Value Explanation of Results ------ <1.0 Negative 1.0-1.5 Weak Positive 1.6-2.5 Moderate Positive >2.5 Strong Positive Test Performed at: [facility] [address] [address] ARCELIA ANDERSON [facility] metabolic pane ([facility]) Reviewed date:08/01/2024 07:37:37 PM Interpretation: Performing Lab:[facility] , [address] [place] [address]. [place] [address] Notes/Report: Sodium 139 135-145 mmol/L Plasma Potassium 3.9 3.3-4.9 mmol/L Chloride 101 97-110 mmol/L Total CO2 29 22-32 mmol/L Anion Gap 9 2-15 mmol/L BUN 19 6-25 mg/dL Creatinine 0.62 0.60-1.10 mg/dL Glucose 81 70-199 mg/dL Interpretive Data Fasting glucose >/= 126 mg/dl is diagnostic for diabetes. Fasting is defined as no caloric intake for at least 8 hours. Fasting glucose between 100 mg/dl to 125 mg/dl is diagnostic of prediabetes. In a patient with classic symptoms of hyperglycemia or hyperglycemic crisis, a random glucose >/= 200 mg/dl is diagnostic for diabetes. In the absence of unequivocal hyperglycemia, results should be confirmed by repeat testing. The classification and Diagnosis of Diabetes Diabetes Care 202; 46: S19-S40. Current interpretive data was last revised 2022. Total Calcium 9.2 8.5-10.3 mg/dL Total Bilirubin 0.4 0.1-1.2 mg/dL Plasma Total Protein 7.6 6.5-8.5 g/dL Albumin 4.4 3.5-5.0 g/dL Alkaline Phosphatase 66 40-130 Units/L ALT 17 7-45 Units/L AST 13 10-45 Units/L Complement C4 Reviewed date:08/01/2024 07:37:37 PM Interpretation: Performing Lab:[facility] , [address] [place] [address]. [facility] [address] Notes/Report: Complement, C4 28 10-40 mg/dL Complement C3 Reviewed date:08/01/2024 07:37:37 PM Interpretation: Performing Lab:[facility] , [address] [place] [address]. [facility] [address] Notes/Report: Complement, C3 133 90-180 mg/dL CBC w auto diff Reviewed date:08/01/2024 02:56:04 PM Interpretation: Performing Lab:[facility] , [address] [place] [address]. [facility] [address] Notes/Report: WBC 7.1 3.8-9.9 K/cumm Hgb 14.1 11.9-15.5 g/dL Hct 43.4 35.6-45.5 % Platelet Ct 247 150-400 K/cumm MPV 10.5 9.1-12.3 fL RBC 4.68 3.90-5.20 M/cumm MCV 92.7 81.3-96.4 fL MCH 30.1 27.1-33.3 pg MCHC 32.5 32.3-35.7 g/dL RDW CV 12.5 11.1-14.9 % RDW SD 42.6 35.7-48.1 fL NRBC Abs Auto 0.00 0.00-0.01 K/cumm C Reactive Protein Reviewed date:08/01/2024 07:37:37 PM Interpretation: Performing Lab:[facility] , [address] [place] [address]. [facility] [address] Notes/Report: C-Reactive Protein <3.0 <=10.0 mg/L NAYELI reflex titer pattern MASON + dsDNA Reviewed date:08/02/2024 01:39:03 PM Interpretation: Performing Lab:[facility] , [address] [place] [address]. [facility] [address] Notes/Report: NAYELI, Qual Positive 1:80 Interpretive Data Normal range for NAYELI Qualitative Antibody = Negative. 1. NAYELI is performed using indirect immunofluorescence against HEp-2 cells 2. NAYELI titers are performed on all positive qualitative results. 3. A significantly positive NAYELI result is defined as a positive nuclear fluorescence at a titer of 1:80 or greater. 4. 15% of normal people above age 65 have significantly positive NAYELI results. 5% or less of normal people age 65 or under have significantly positive NAYELI results. Current interpretive data was last revised on 2020. Testing performed by: [facility], [address] [place]., [address] NAYELI, Ren 1:80 Testing performed by: [facility], [address] [place]., [address] NAYELI Pattern 1 Speckled Testing performed by: [facility], [address] [place]., [address] Reason For Referral No Information Medications Medication SIG (Take, Route, Frequency, Duration) Notes Start Date End Date Status Etodolac 400 MG TAKE 1 TABLET(400 MG ) BY MOUTH TWICE DAILY WITH FOOD for 90 Active Omeprazole 40 MG 1 capsule 30 minutes before morning meal Orally Once a day for 30 day(s) Active hydrOXYzine HCl 25 MG take 1 tablet daily oral *Pick strength-form from Netaplan for eRX* Active Taltz 80 MG/ML 1 Subcutaneous every 4 weeks for 90 days Active Problems Problem Type SNOMED Code ICD Code Onset Dates Problem Status W/U Status Risk Notes Problem 92185531 Other local lupu s erythematosus (L93.2) Active confirmed Problem 9082948 Ankylosing spondylitis of multiple sites in spine (M45.0) Active confirmed Vital Signs Heart Rate 77 /min 11/06/2024 Temperature 98.3 degrees Fahrenheit 11/06/2024 Height-cm 167.64 cm 11/06/2024 Oximetry 98 % 08/01/2024 Blood pressure diastolic 74 mm Hg 11/06/2024 Weight-kg 73.02 kg 11/06/2024 Height 66 in 11/06/2024 Blood pressure systolic 110 mm Hg 11/06/2024 Weight 161 lbs 11/06/2024 BMI 25.98 kg/m2 11/06/2024 Encounters Encounter Location Date Provider Diagnosis [facility] [address] [address] [place] [address] 01/31/2024 Myesha Du Ankylosing spondylit is of multiple sites in spine M45.0 ; Scleritis, unspecified laterality H15.009 ; Other local lupus erythematosus L93.2 ; Adverse effect of unspecified drugs, medicaments and biological substances, initial encounter T50.905A and Lumbar back pain M54.50 [facility] [address] [facility] [address] [place] [address] 05/02/2024 Myesha Du Ankylosing spondylit is of multiple sites in spine M45.0 ; Scleritis, unspecified laterality H15.009 ; Other local lupus erythematosus L93.2 ; Adverse effect of unspecified drugs, medicaments and biological substances, initial encounter T50.905A and Lumbar back pain M54.50 [facility] [address] [facility] [address] [place] [address] 08/01/2024 Myesha Du Ankylosing spondylit is of multiple sites in spine M45.0 ; Scleritis, unspecified laterality H15.009 ; Other local lupus erythematosus L93.2 ; Adverse effect of unspecified drugs, medicaments and biological substances, initial encounter T50.905A and Lumbar back pain M54.50 [facility] [address] [facility] [address] [place] [address] 08/11/2024 Myesha Du Ankylosing spondylit is of multiple sites in spine M45.0 ; Scleritis, unspecified laterality H15.009 ; Other local lupus erythematosus L93.2 ; Adverse effect of unspecified drugs, medicaments and biological substances, initial encounter T50.905A and Lumbar back pain M54.50 [facility] [address] [facility] [address] [place] [address] 09/07/2024 Myesha Du Ankylosing spondylit is of multiple sites in spine M45.0 ; Scleritis, unspecified laterality H15.009 ; Other local lupus erythematosus L93.2 ; Adverse effect of unspecified drugs, medicaments and biological substances, initial encounter T50.905A and Lumbar back pain M54.50 [facility] [address] [facility] [address] [place] [address] 11/06/2024 Myesha Du Ankylosing spondylit is of multiple sites in spine M45.0 ; Scleritis, unspecified laterality H15.009 ; Other local lupus erythematosus L93.2 ; Adverse effect of unspecified drugs, medicaments and biological substances, initial encounter T50.905A and Lumbar back pain M54.50 [facility] [address] [place] [address] 02/01/2024 [facility] [address] [place] [address] 04/10/2024 [facility] [address] [place] [address] 06/20/2024 [facility] [address], [place] [address] 07/25/2024 Myesha Elliott Ankylosing spondylit is of multiple sites in spine M45.0 [facility] [address] [place] [address] 02/01/2024 [facility] [address] [place] [address] 02/07/2024 [facility] [address] [place] [address] 04/10/2024 [facility] [address] [place] [address] 08/02/2024 [facility] [address] [place] [address] 08/09/2024 [facility] [address] [place] [address] 08/10/2024 [facility] [address], [place] [address] 08/10/2024 [facility] [address], [place] [address] 09/06/2024 [facility] [address] [place] [address] 01/18/2025 Myesha Elliott Assessments Encounter Date Diagnosis (ICD Code) Assessment Notes Treatment Notes Treatment Clinical Notes Section Notes 01/31/2024 Ankylosing spondylitis of multiple sites in spine (ICD-10 - M45.0) continue etodolac, add cymbalta 30mg/day, stay off TNF blockers due to hx of DLE, return in 3 months 01/31/2024 Scleritis, unspecified laterality (ICD-10 - H15.009) continue etodolac, add cymbalta 30mg/day, stay off TNF blockers due to hx of DLE, return in 3 months 05/02/2024 Ankylosing spondylitis of multiple sites in spine (ICD-10 - M45.0) stable for the most part, continue etodolac and taltz, stay off TNF blockers due to hx of DLE, return in 3 months 07/25/2024 Ankylosing spondylitis of multiple sites in spine (ICD-10 - M45.0) 08/01/2024 Ankylosing spondylitis of multiple sites in spine (ICD-10 - M45.0) mildly symptomatic, continue etodolac and taltz, labs today, return in 3 months 08/11/2024 Ankylosing spondylitis of multiple sites in spine (ICD-10 - M45.0) labs discussed with patient, NAYELI and histone +, will repeat these labs at [facility] at next visit, continue etodolac and taltz, return in 3 months 09/07/2024 Ankylosing spondylitis of multiple sites in spine (ICD-10 - M45.0) flared up, will treat with prednisone taper, continue taltz 11/06/2024 Ankylosing spondylitis of multiple sites in spine (ICD-10 - M45.0) mildly symptomatic, continue taltz and etodolac, return in 3 months 09/07/2024 Scleritis, unspecified laterality (ICD-10 - H15.009) flared up, will treat with prednisone taper, continue taltz 11/06/2024 Scleritis, unspecified laterality (ICD-10 - H15.009) mildly symptomatic, continue taltz and etodolac, return in 3 months 08/11/2024 Scleritis, unspecified laterality (ICD-10 - H15.009) labs discussed with patient, NAYELI and histone +, will repeat these labs at [facility] at next visit, continue etodolac and taltz, return in 3 months 08/01/2024 Scleritis, unspecified laterality (ICD-10 - H15.009) mildly symptomatic, continue etodolac and taltz, labs today, return in 3 months 05/02/2024 Scleritis, unspecified laterality (ICD-10 - H15.009) stable for the most part, continue etodolac and taltz, stay off TNF blockers due to hx of DLE, return in 3 months 01/31/2024 Other local lupus erythematosus (ICD-10 - L93.2) continue etodolac, add cymbalta 30mg/day, stay off TNF blockers due to hx of DLE, return in 3 months 05/02/2024 Other local lupus erythematosus (ICD-10 - L93.2) stable for the most part, continue etodolac and taltz, stay off TNF blockers due to hx of DLE, return in 3 months 01/31/2024 Adverse effect of unspecified drugs, medicaments and biological substances, initial encounter (ICD-10 - T50.905A) continue etodolac, add cymbalta 30mg/day, stay off TNF blockers due to hx of DLE, return in 3 months 08/01/2024 Other local lupus erythematosus (ICD-10 - L93.2) mildly symptomatic, continue etodolac and taltz, labs today, return in 3 months 08/11/2024 Other local lupus erythematosus (ICD-10 - L93.2) labs discussed with patient, NAYELI and histone +, will repeat these labs at [facility] at next visit, continue etodolac and taltz, return in 3 months 09/07/2024 Other local lupus erythematosus (ICD-10 - L93.2) flared up, will treat with prednisone taper, continue taltz 11/06/2024 Other local lupus erythematosus (ICD-10 - L93.2) mildly symptomatic, continue taltz and etodolac, return in 3 months 11/06/2024 Adverse effect of unspecified drugs, medicaments and biological substances, initial encounter (ICD-10 - T50.905A) mildly symptomatic, continue taltz and etodolac, return in 3 months 09/07/2024 Adverse effect of unspecified drugs, medicaments and biological substances, initial encounter (ICD-10 - T50.905A) flared up, will treat with prednisone taper, continue taltz 08/11/2024 Adverse effect of unspecified drugs, medicaments and biological substances, initial encounter (ICD-10 - T50.905A) labs discussed with patient, NAYELI and histone +, will repeat these labs at [facility] at next visit, continue etodolac and taltz, return in 3 months 08/01/2024 Adverse effect of unspecified drugs, medicaments and biological substances, initial encounter (ICD-10 - T50.905A) mildly symptomatic, continue etodolac and taltz, labs today, return in 3 months 05/02/2024 Adverse effect of unspecified drugs, medicaments and biological substances, initial encounter (ICD-10 - T50.905A) stable for the most part, continue etodolac and taltz, stay off TNF blockers due to hx of DLE, return in 3 months 01/31/2024 Lumbar back pain (ICD-10 - M54.50) continue etodolac, add cymbalta 30mg/day, stay off TNF blockers due to hx of DLE, return in 3 months 05/02/2024 Lumbar back pain (ICD-10 - M54.50) stable for the most part, continue etodolac and taltz, stay off TNF blockers due to hx of DLE, return in 3 months 08/01/2024 Lumbar back pain (ICD-10 - M54.50) mildly symptomatic, continue etodolac and taltz, labs today, return in 3 months 08/11/2024 Lumbar back pain (ICD-10 - M54.50) labs discussed with patient, NAYELI and histone +, will repeat these labs at [facility] at next visit, continue etodolac and taltz, return in 3 months 09/07/2024 Lumbar back pain (ICD-10 - M54.50) flared up, will treat with prednisone taper, continue taltz 11/06/2024 Lumbar back pain (ICD-10 - M54.50) mildly symptomatic, continue taltz and etodolac, return in 3 months Plan Of Treatment Next Appt Details Provider Name:Myesha Earl, 02/01 10:15:00 AM, [address] [facility] [address], [place], [address], Insurance Providers Payer Name Payer Address Payer Phone Subscriber Number Group Number Insured Name Patient Relationship to Insured Coverage Start Date Coverage End Date [employer] - Commercial [address] [place] [address] [id number] Aaliyah Young Self - patient is the insured Medical (General) History Medical History History ICD Code Jeannie-Danlos syndrome; GERD (gastroesophageal reflux disease); Surgical History Surgery Date(Month/Year) Wrist surgery; 2020-12-14
--- OUTSIDE RECORDS SUMMARY | 2025-01-22 08:35 | XMS_ITS | Encounter Summary ---
Author Organization [facility] Address [address] [place] [address] Care Team Providers Care Burglar Alarm Operator Name Role Phone Fe Aguilar MD Primary Care Provider [phone] Encounter Details Date Type Department Care Team (Late st Contact Info) Description 12/30/2022 mycujoohart Message Enc [facility] Medical [facility] Multispecialty [facility] - [address] [address] Fe Aguilar MD [address] [place] [address] [phone] Glucose levels Social History Tobacco Use Types Packs/Day Years [...] Sex Assigned at Female 01/04/2025 11:27 AM VENETIAN BLIND TAPE CUTTER Legal Sex Female 8:21 PM CDT Gender Identity Female 01/04/2025 11:27 AM VENETIAN BLIND TAPE CUTTER Sexual Orientation Not on file documented as of this encounter Plan of Treatment Upcoming Encounters Date Type Department Care Team (Latest Contact Info) Description 05/01/2025 8:20 AM CDT Office Visit [facility] Medical [facility] Multispecialty [facility] - [address] [phone] Fe Aguilar MD [address] [place] [address] 05/23/2025 8:59 AM CDT Hospital Encounter [facility] [address] [place] [address] Leonel Mansfield MD 3 [facility] 5000 [place] [address] 05/23/2025 8:59 AM CDT - 05/23/2025 9:25 AM CDT Surgery [facility] [address] [place] [address] Leonel Mansfield MD [address] [address] COLONOSCOPY SCREENING Scheduled Procedures Name Priority Associated Diagnoses Date/Ti me COLONOSCOPY SCREENING Screening for colon cancer 05/23/2025 8:59 AM CDT documented as of this encounter Visit Diagnoses Not on filedocumented in this encounter Care Teams Burglar Alarm Operator Relationship Specialty Start Date End Date Fe Aguilar MD [address] [facility] [address] [place] [address] PCP - General INTERNAL MEDICINE 09/23/22 documented as of this encounter
--- OUTSIDE RECORDS SUMMARY | 2025-01-22 08:35 | XMS_ITS ---
Author Organization [facility] Address [address] [place] [address] Care Team Providers Care Senior Java Data Architect Name Role Phone Fe Aguilar MD Primary Care Provider Myesha Travis Unavailable [phone] Allergies No Known Allergies REASON FOR VISIT [...] 1 tablet daily oral *Pick strength-form from [employer] for eRX* Active Taltz 80 MG/ML 1 Subcutaneous every 4 weeks for 90 days Active Social History Tobacco Use: Social History Observation Description Date Details (start date - stop date) Never Smoker NA - NA Tobacco Control (Standard) Question Answer Notes Tobacco use: Nonsmoker Vital Signs Temperature 98.3 degrees Fahrenheit 11/06/20 24 Blood pressure systolic 110 mm Hg 11/06/20 24 Blood pressure diastolic 74 mm Hg 024 Heart Rate 77 /min 11/06/2024 Height 66 in 11/06/2024 Weight 161 lbs 11/06/2024 BMI 25.98 kg/m2 11/06/2024 Height-cm 167.64 cm 11/06/2024 Weight-kg 73.02 kg 11/06/2024 Encounters Encounter Location Date Provider Diagnosis [facility] [address] [place] [address] 11/06/2024 Myesha Franco Ankylosing spondylit is of multiple sites in spine M45.0 ; Scleritis, unspecified laterality H15.009 ; Other local lupus erythematosus L93.2 ; Adverse effect of unspecified drugs, medicaments and biological substances, initial encounter T50.905A and Lumbar back pain M54.50 Assessments Encounter Date Diagnosis (ICD Code) Assessment Notes Treatment Notes Treatment Clinical Notes Section Notes 11/06/2024 Ankylosing spondylitis of multiple sites in spine (ICD-10 - M45.0) mildly symptomatic, continue taltz and etodolac, return in 3 months 11/06/2024 Scleritis, unspecified laterality (ICD-10 - H15.009) mildly symptomatic, continue taltz and etodolac, return in 3 months 11/06/2024 Other local lupus erythematosus (ICD-10 - L93.2) mildly symptomatic, continue taltz and etodolac, return in 3 months 11/06/2024 Adverse effect of unspecified drugs, medicaments and biological substances, initial encounter (ICD-10 - T50.905A) mildly symptomatic, continue taltz and etodolac, return in 3 months 11/06/2024 Lumbar back pain (ICD-10 - M54.50) mildly symptomatic, continue taltz and etodolac, return in 3 months Plan Of Treatment Next Appt Details Follow Up: 3 Months, Reason: Provider Name:Myesha Earl, 02/01 10:15:00 AM, [address] [facility], [address], [address], Progress Notes * Jennifer HURSTIgnacioOB:1980 (44 yo F)Acc No.[id number]:11/06/2024 Progress Notes Patient: Aaliyah MARTINEZ Provider: Pennie FRANCO MD :1980 A ge:44 Y S ex:Female Date:11/06/2024 Address:[address] [place], [place] [id number] Pcp:Fe Aguilar MD Subjective: * Chief Complaints: * Y d,f/u,ccAS * HPI: G eneral Follow up: on etodolac and taltz, meds helping, heels and low back aching, saw collections attorney, had injections, wears orthotics, am stiffness: 30 [...] T-spine and L-spine X-rays: mild deg changes HLA-B27 (+) 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 She has seen Dr. Ribera and pain doctor, failed gabapentin. muscle relaxers made her groggy, Physical therapy did helpsome. Pyriformis injection did help. SI injections did not help. Brother: ankylosing spondylitis Mother: HLA-B27 (+). * ROS: G eneral / Constitutional: Patient denies f nupur, chills. P atient complains of?fatigue. M usculoskeletal: Patient complains of s ee HPI. S kin: Patient denies r nereida. * Medical History: * Surgical History: W rist surgery; 2020-12-14 * Hospitalization/Major Diagno stic Procedure: * Social History: T obacco Use: T obacco Control (Standard) T obacco use: N onsmoker. * Medications: T akingTaltz 80 MG/ML Solution Auto-injector 1 Subcutaneous every 4 weeks hydrOXYzine HCl 25 MG Tablet take 1 tablet daily oral , Notes to Pharmacist: *Pick strength- form from [employer] for eRX*Omeprazole 40 MG Capsule Delayed Release 1 capsule 30 minutes before morning meal Orally Once a day Etodolac 400 MG Tablet TAKE 1 TABLET(400 MG) BY MOUTH TWICE DAILY WITH FOOD Medication List reviewed and reconciled with the patientTaking Taltz 80 MG/ML Solution Auto-injector 1 Subcutaneous every 4 weeks Taking hydrOXYzine HCl 25 MG Tablet take 1 tablet daily oral , Notes to Pharmacist: *Pick strength-form from [employer] for eRX*Taking Omeprazole 40 MG Capsule Delayed Release 1 capsule 30 minutes before morning meal Orally Once a day Taking Etodolac 400 MG Tablet TAKE 1 TABLET(400 MG) BY MOUTH TWICE DAILY WITH FOOD Medication List reviewed and reconciled with the patient * Allergies: N .K.D.A.no[Allergies Verified] Objective: * Vitals: B P:110/74mm Hg, HR:77/min, Temp:98.3F, Wt:161lbs, Wt-k.02kg, Ht:66in, Ht-cm:167.64cm, BMI:25.98Index, Body Surface Area:1.84. * Examination: G eneral Examination: General appearance: a lert, well-nourished and in no acute distress. Head: n ormocephalic, atraumatic. Eyes: n ormal. Skin: n o rash. Lungs: r espiratory effort normal. N eurology: Speech: n ormal. P sychiatry: Affect / mood: a ppropriate. R heumatology: + midline tenderness at LS. Assessment: * Assessment: 1. A nkylosing spondylitis of multiple sites in spine - M45.0 (Primary) 2 .?Scleritis, unspecified laterality - H15.009 3 . O ther local lupus erythematosus - L93.2 4 . A dverse effect of unspecified drugs, medicaments and biological substances, initial encounter - T50.905A 5 . L umbar back pain - M54.50 ? mildly symptomatic, continue taltz and etodolac, return in 3 months Plan: * Treatment: * Procedure Codes: * Follow Up: 3 Months * Billing Information: * Visit Code: 51748 Office Visit, Est Pt., Level 4. 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 She has seen Dr. Ribera and pain doctor, failed gabapentin. muscle relaxers made her groggy, Physical therapy did helpsome. Pyriformis injection did help. SI injections did not help. Brother: ankylosing spondylitis Mother: HLA-B27 (+) Examination Category Sub-Category Detail Notes Category Not es Rheumatology +midline tenderness at LS Neurology Speech: normal Psychiatry Affect / mood: appropriate General Examination General appearance: alert, w ell-nourished and in no acute distress Head: normocephalic, atrau matic Eyes: normal Lungs: respiratory effort n ormal Skin: no rash
--- OUTSIDE RECORDS SUMMARY | 2025-01-22 08:35 | XMS_ITS | Encounter Summary ---
Author Organization [facility] Address [address] [place] [address] Care Team Providers Care Mortgage Field Inspector Name Role Phone Fe Aguilar MD Primary Care Provider [phone] Encounter Details Date Type Department Care Team (Latest Contact Info) Description 09/19/2023 [facility] [address] Fe Aguilar MD [address] [place] [address] [phone] reschedule your upcoming appointment Social History Tobacco Use Types Packs/Day Years [...] Sex Assigned at Female 01/04/2025 11:27 AM EGG CRATER Legal Sex Female 8:21 PM CDT Gender Identity Female 01/04/2025 11:27 AM EGG CRATER Sexual Orientation Not on file documented as of this encounter Plan of Treatment Upcoming Encounters Date Type Department Care Team (Latest Contact Info) Description 05/01/2025 8:20 AM CDT [facility] [address] [phone] Fe Aguilar MD [address] [place] [address] 05/23/2025 8:59 AM CDT Hospital Encounter [facility] [address] [place] [address] Leonel Mansfield MD 3 [facility] 5000 [place] [address] 05/23/2025 8:59 AM CDT - 05/23/2025 9:25 AM CDT Surgery [facility] [address] [place] [address] Leonel Mansfield MD 3 [facility] 5000 [place] [address] COLONOSCOPY SCREENING Scheduled Procedures Name Priority Associated Diagnoses Date/Ti me COLONOSCOPY SCREENING Screening for colon cancer 05/23/2025 8:59 AM CDT documented as of this encounter Visit Diagnoses Not on filedocumented in this encounter Care Teams Mortgage Field Inspector Relationship Specialty Start Date End Date Fe Aguilar MD 1188 [facility] [address] [place] [address] PCP - General INTERNAL MEDICINE 09/23/22 documented as of this encounter
--- OUTSIDE RECORDS SUMMARY | 2025-01-22 08:35 | XMS_ITS | Encounter Summary ---
Author Organization [facility] Address [address] [place] [address] Care Team Providers Care Regulator Pin Inserter Name Role Phone Fe Aguilar MD Primary Care Provider [phone] Encounter Details Date Type Department Care Team (Late st Contact Info) Description 07/23/2023 Accupost Corporationhart [facility] [address] Fe Aguilar MD [address] [place] [address] [phone] Covid/flu shot Social History Tobacco Use Types Packs/Day Years [...] Sex Assigned at Female 01/04/2025 11:27 AM ELECTRONICS ENGINEERING TECHNOLOGIST Legal Sex Female 8:21 PM CDT Gender Identity Female 01/04/2025 11:27 AM ELECTRONICS ENGINEERING TECHNOLOGIST Sexual Orientation Not on file documented as of this encounter Plan of Treatment Upcoming Encounters Date Type Department Care Team (Latest Contact Info) Description 05/01/2025 8:20 AM CDT [facility] [place] [address] [place] [address] [phone] Fe Aguilar MD [address] [place] [address] 05/23/2025 8:59 AM CDT Hospital Encounter [facility] [address] [place] [address] Leonel Mansfield MD 3 [facility] [address] [place] [address] 05/23/2025 8:59 AM CDT - 05/23/2025 9:25 AM CDT Surgery [facility] [address] [place] [address] Leonel Mansfield MD 3 [facility] 5000 [place] [address] COLONOSCOPY SCREENING Scheduled Procedures Name Priority Associated Diagnoses Date/Ti me COLONOSCOPY SCREENING Screening for colon cancer 05/23/2025 8:59 AM CDT documented as of this encounter Visit Diagnoses Not on filedocumented in this encounter Care Teams Regulator Pin Inserter Relationship Specialty Start Date End Date Fe Aguilar MD [address] [facility] 157 [place] [address] PCP - General INTERNAL MEDICINE 09/23/22 documented as of this encounter
== END 2025-01-22 08:14 | disposition home or self-care (01) ==
LOC: ANHIMG 08:17
PROVIDERS: PCP Internal Medicine; Visit Provider Nurse Practitioner
DX: Z12.31 Encounter for screening mammogram for malignant neoplasm of breast (principal); R92.8 Other abnormal and inconclusive findings on diagnostic imaging of breast
CPT/HCPCS: 77063; 77067

== ENCOUNTER 2025-01-31 12:26 | Outpatient (CLI) | payer OTHER, SELFPAY ==
--- NOTE | ~2025-01-31 | MM_ITS ---
EXAMINATION: MM diagnostic ned LT w katt HISTORY: 44-year-old woman presents for diagnostic evaluation of developing asymmetries within the s ubareolar portion of the left breast, seen only on cc view . TECHNIQUE: Additional 3-D tomosynthesis images of the left breast in the CC view were performed and s ynthetic 2-D images were generated. True lateral view was also performed. CAD analysis was submitted and interpreted. COMPARISON: 01/22/2025 and dating back to 08/25/2021. BREAST PARENCHYMAL COMPOSITION: Not dense: There are scattered areas of fibroglandular density. FINDINGS: MAMMOGRAPHIC FINDINGS: The area of prior mammographic concern completely effaces with spot compression for which no further dedicated evaluation is needed. This focus likely represented a summation artifact (overlapping fibro glandular tissues). IMPRESSION: No mammographic or tomographic evidence to suggest the presence of malignancy. Resumption of yearly mammography is recommended. BI-RADS Category 2: Benign finding(s). Reviewed, dictated and finalized at location A.
--- OUTSIDE RECORDS SUMMARY | 2025-01-31 13:32 | XMS_ITS | Encounter Summary ---
Author Organization [facility] Address [address] [place] [address] Care Team Providers Care Acetaldehyde Converter Operator Name Role Phone Fe Aguilar MD Primary Care Provider [phone] Encounter Details Date Type Department Care Team (Late st Contact Info) Description 10/13/2023 Yummlyhart Message [facility] [place] [address] [address] [place] [address] Fe Aguilar MD [address] [place] [address] [phone] Blood work Social History Tobacco Use Types [...] Sex Assigned at Female 01/04/2025 11:27 AM AERONAUTICS TEACHER Legal Sex Female 8:21 PM CDT Gender Identity Female 01/04/2025 11:27 AM AERONAUTICS TEACHER Sexual Orientation Not on file documented as of this encounter Plan of Treatment Upcoming Encounters Date Type Department Care Team (Latest Contact Info) Description 05/01/2025 8:20 AM CDT Office Visit [facility] Medical [facility] Multispecialty [place] [address] [address] [place] [address] Fe Aguilar MD [address] [place] [address] 157 [place], [place] [phone] 05/23/2025 8:59 AM CDT Hospital Encounter [facility] [address] [place] [address] Leonel Mansfield MD 3 [facility] 5000 [place] [address] 05/23/2025 8:59 AM CDT - 05/23/2025 9:25 AM CDT Surgery [facility] [address] [place] [address] Leonel Mansfield MD 3 [facility] [address] [place] [address] COLONOSCOPY SCREENING Scheduled Procedures Name Priority Associated Diagnoses Date/Ti me COLONOSCOPY SCREENING Screening for colon cancer 05/23/2025 8:59 AM CDT documented as of this encounter Visit Diagnoses Not on filedocumented in this encounter Care Teams Acetaldehyde Converter Operator Relationship Specialty Start Date End Date Fe Aguilar MD 1188 [facility] 157 [place] [address] PCP - General INTERNAL MEDICINE 09/23/22 documented as of this encounter
--- OUTSIDE RECORDS SUMMARY | 2025-01-31 13:32 | XMS_ITS | Clinical Summary ---
Author Organization [facility] Address [address] [facility], [address] [address] Phone Care Team Providers Care Robotics Technologist Name Role Phone Cas Rizo MD Primary [...] on file Legal Sex Female 2:42 PM CONFIGURATION MANAGEMENT MANAGER Gender Identity Not on file Sexual Orientation Not on file Last Filed Vital Signs Vital Sign Reading Time Taken Comments Blood Pressure 102/64 01/06/2021 9:03 AM CONFIGURATION MANAGEMENT MANAGER Pulse 89 01/06/2021 9:03 AM CONFIGURATION MANAGEMENT MANAGER Temperature 35.6 C (96 F) 01/06/2021 9:03 AM CONFIGURATION MANAGEMENT MANAGER Respiratory Rate 18 01/06/2021 9:03 AM CONFIGURATION MANAGEMENT MANAGER Oxygen Saturation 98% 01/06/2021 9:03 AM CONFIGURATION MANAGEMENT MANAGER Inhaled Oxygen Concentration - - Weight 69.9 kg (154 lb) 01/06/2021 9:03 AM CONFIGURATION MANAGEMENT MANAGER Height 167.6 cm (5' 6 ) 01/06/2021 9:03 AM CONFIGURATION MANAGEMENT MANAGER Body Mass Index 24.86 01/06/2021 9:03 AM CONFIGURATION MANAGEMENT MANAGER Plan of Treatment Health Maintenance Due Date [...] age to complete this topic Care Teams Robotics Technologist Relationship Specialty Start Date End Date Cas Rizo MD [address] [place] [address] PCP - General Family Medicine 12/11/20
--- OUTSIDE RECORDS SUMMARY | 2025-01-31 13:32 | XMS_ITS | Encounter Summary ---
Author Organization [facility] Address [address] [place] [address] Care Team Providers Care Rehabilitation Therapy Aide Name Role Phone Fe Aguilar MD Primary Care Provider [phone] Encounter Details Date Type Department Care Team (Late st Contact Info) Description 10/28/2023 Origo.byhart Message Enc [facility] [place] [address] [address] [place] [address] Fe Aguilar MD [address] [place] [address] [phone] Covid Social History Tobacco Use Types Packs/Day [...] Sex Assigned at Female 01/04/2025 11:27 AM APPLICATION INTEGRATION ARCHITECT Legal Sex Female 8:21 PM CDT Gender Identity Female 01/04/2025 11:27 AM APPLICATION INTEGRATION ARCHITECT Sexual Orientation Not on file documented as of this encounter Plan of Treatment Upcoming Encounters Date Type Department Care Team (Latest Contact Info) Description 05/01/2025 8:20 AM CDT Office Visit [facility] [place] [address] [address] [place] [address] Fe Aguilar MD [address] [place] [address] 157 [place], [place] [phone] 05/23/2025 8:59 AM CDT Hospital Encounter [facility] [address] [place] [address] Leonel Mansfield MD 3 [facility] [address] [place] [address] 05/23/2025 8:59 AM CDT - 05/23/2025 9:25 AM CDT Surgery [facility] [address] [place] [address] Leonel Mansfield MD 3 [facility] [address] [place] [address] COLONOSCOPY SCREENING Scheduled Procedures Name Priority Associated Diagnoses Date/Ti me COLONOSCOPY SCREENING Screening for colon cancer 05/23/2025 8:59 AM CDT documented as of this encounter Visit Diagnoses Not on filedocumented in this encounter Additional Health Concerns Assessment Noted Time PHQ-9 Depression Total Score: 3 10/15/20 23 2:26 PM APPLICATION INTEGRATION ARCHITECT documented as of this encounter Care Teams Rehabilitation Therapy Aide Relationship Specialty Start Date End Date Fe Aguilar MD 1188 [facility] 157 [place] [address] PCP - General INTERNAL MEDICINE 09/23/22 documented as of this encounter
--- OUTSIDE RECORDS SUMMARY | 2025-01-31 13:32 | XMS_ITS | Clinical Summary ---
Author Organization [facility] [place] [address] Address [address] [place] [address] Care Team Providers Care Window Glass Installer Name Role Phone Fe Aguilar MD Primary Care Provider Allergies No known active allergies Medications hydrOXYzine [...] on file Legal Sex Female 11:06 PM RESOURCE MANAGER FORESTER Gender Identity Not on file Sexual Orientation [...] patient's age to complete this topic Insurance [facility] Care Teams Window Glass Installer Relationship Specialty Start Date End Date Fe Aguilar MD [address] [place] [address] PCP - General Internal Medicine 09/05/23
--- OUTSIDE RECORDS SUMMARY | 2025-01-31 13:32 | XMS_ITS | Clinical Summary ---
Author Organization [facility] Address [address] [place] [phone] Phone Care Team Providers Care Heavy Equipment Sales Associate Name Role Phone Miles Quezada DO Primary [...] of 3 - 19+ 3-dose series) 02/12/1999 PAP SMEAR 02/12/2001 CERVICAL CANCER SCREENING 02/12/2010 HPV/Cotest 02/12/2010 PAP SMEAR 02/12/2010 BREAST CANCER SCREENING 2020 INFLUENZA VACCINE (#1) 2024 HPV VACCINES Aged Out No longer eligi ble based on patient's age to complete this topic Care Teams Heavy Equipment Sales Associate Relationship Specialty Start Date End Date Miles Quezada DO PCP - General Internal Medicine 04/16/17
--- OUTSIDE RECORDS SUMMARY | 2025-01-31 13:32 | XMS_ITS | Encounter Summary ---
Author Organization [facility] Address [address] [place] [address] Care Team Providers Care Board Stacker Name Role Phone Fe Aguilar MD Primary Care Provider [phone] Reason for Visit * Reason Comments Mammogram (SCAN) Encounter Details Date Type Department Care Team ( Contact Info) Description 01/22/2025 Scan [facility] Scanned, Doc [facility] Mammogram (SCAN) Social History Tobacco Use Types Packs/Day Years [...] Sex Assigned at Female 01/04/2025 11:27 AM LEATHER PRODUCTION ARTISAN Legal Sex Female 8:21 PM CDT Gender Identity Female 01/04/2025 11:27 AM LEATHER PRODUCTION ARTISAN Sexual Orientation Not on file documented as of this encounter Plan of Treatment Upcoming Encounters Date Type Department Care Team (Latest Contact Info) Description 05/01/2025 8:20 AM CDT Office Visit [facility] Multispecialty Care - [place] [address] [address] [place] [address] Fe Aguilar MD [address] [place] [address] 05/23/2025 8:59 AM CDT Hospital Encounter [facility] [address] [place] [address] Leonel Mansfield MD [address] [facility] [address] [place] [address] 05/23/2025 8:59 AM CDT - 05/23/2025 9:25 AM CDT Surgery [facility] [address] [place] [address] Leonel Mansfield MD [address] [facility] [address] [place] [address] COLONOSCOPY SCREENING Scheduled Procedures Name Priority Associated Diagnoses Date/Ti me COLONOSCOPY SCREENING Screening for colon cancer 05/23/2025 8:59 AM CDT documented as of this encounter Procedures Procedure Name Priority Date/Time Associated Diagnosis Comments MAMMOGRAM GENERIC (SCAN ORDER) 01/22/2025 documented in this encounter Results * MAMMOGRAM GENERIC (SCAN ORDER) (01/22/2025) Anatomical Region Laterality Modality Other 01/22/2025 us Doc Med Group Scanned SCANNING Final Resu lt documented in this encounter Visit Diagnoses Not on filedocumented in this encounter Additional Health Concerns Assessment Noted Time PHQ-9 Depression Total Score: 2 10/24/20 24 9:45 AM LEATHER PRODUCTION ARTISAN documented as of this encounter Care Teams Board Stacker Relationship Specialty Start Date End Date Fe Aguilar MD 1188 [facility] 157 [place] [address] PCP - General INTERNAL MEDICINE 09/23/22 documented as of this encounter
--- OUTSIDE RECORDS SUMMARY | 2025-01-31 13:32 | XMS_ITS | Clinical Summary ---
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 [place] [address] Fe Aguilar MD Schaefer, Jennifer, SIMON New Patient; Consult For Colonoscopy (Colon screening) 01/04/2025 Orders Only [facility] [address] [place] [id number] Leonel Mansfield MD 01/04/2025 Travel 01/03/2025 Kaymbuhart Message Enc [facility] [place] [address] [place] [address] Fe Aguilar MD Subconjunctival hemorrhage from Last 3 Months Immunizations Name Administration [...] Sex Assigned at Female 01/04/2025 11:27 AM K 9 HANDLER/ DEPUTY Legal Sex Female 8:21 PM CDT Gender Identity Female 01/04/2025 11:27 AM K 9 HANDLER/ DEPUTY Sexual Orientation Not on file Last Filed Vital Signs Vital Sign Reading Time Taken Comments Blood Pressure 112/71 01/04/2025 11:27 AM K 9 HANDLER/ DEPUTY Pulse 74 01/04/2025 11:27 AM K 9 HANDLER/ DEPUTY Temperature 36.8 C (98.3 F) 01/04/2025 11:27 AM K 9 HANDLER/ DEPUTY Respiratory Rate 20 01/04/2025 11:27 AM K 9 HANDLER/ DEPUTY Oxygen Saturation 99% 01/04/2025 11:27 AM K 9 HANDLER/ DEPUTY Inhaled Oxygen Concentration - - Weight 71.2 kg (157 lb) 01/04/2025 11:27 AM K 9 HANDLER/ DEPUTY Height 167.6 cm (5' 6 ) 01/04/2025 11:27 AM K 9 HANDLER/ DEPUTY Body Mass Index 25.34 01/04/2025 11:27 AM K 9 HANDLER/ DEPUTY Plan of Treatment Upcoming Encounters Date Type Department Care Team (Latest Contact Info) Description 05/01/2025 8:20 AM CDT Office Visit [facility] Multispecialty Care - [place] [address] [address] [place] [address] Fe Aguilar MD [address] [place] [address] 05/23/2025 8:59 AM CDT Hospital Encounter [facility] [address] [place] [address] Leonel Mansfield MD [address] [address] 05/23/2025 8:59 AM CDT - 05/23/2025 9:25 AM CDT Surgery [facility] [address] [place] [address] Leonel Mansfield MD [address] [address] COLONOSCOPY SCREENING Scheduled Procedures Name Priority Associated [...] 2024 08/23/2024, 09/20/2023, 08/10/2022, Additional history exists Annual Physical 10/24/2025 10/24/2024, 06/2023, 09/23/2022 Cervical Cancer Screening Pap Smear (Age 30 to 64) Every 3 Years 02/02/2026 02/02/2023 Cervical Cancer Screening with HPV 02/02/2026 Mammogram Screening 01/22/2027 01/22/2025, 01/22/2025, 10/29/2022, Additional history exists DTaP, Tdap and Td Vaccines (3 - Td or Tdap) 04/20/2031 04/20/2021, 08/20/2013 Hepatitis C Completed 09/28/2022 Influenza Adult Completed 08/23/2024, 07/2023, 08/24/2022, Additional history exists PHQ-2 (Physician [place]) Completed 01/04/2025 HPV Vaccines Aged Out No [...] Diagnosis Comments MAMMOGRAM GENERIC (SCAN ORDER) 01/22/2025 MG SCREENING W LAURA IZABEL DIGI Routine 01/22/2025 12:00 AM CDT Encounter for screening mammogram for malignant neoplasm of breast OUTSIDE CYTOPATH CERV/VAG INTERPRET (PAP) (SCAN ORDER) 02/02/2023 HEPATITIS C ANTIBODY Routine 09/28/2022 8:58 AM K 9 HANDLER/ DEPUTY Annual physical exam Encounter for medical examination to establish care General medical exam Encounter for hepatitis C screening test for low risk patient from Last 3 Months or Most Recently Relevant to Health Maintenance Results * MG SCREENING W LAURA IZABEL DIGI (01/22/2025 12:00 AM CDT) Anatomical Region Laterality Modality Breast Bilateral Mammography 01/22/2025 [employer] Fe Aguilar MD MAMMO Final Result * MAMMOGRAM GENERIC (SCAN ORDER) (01/22/2025) Anatomical Region Laterality Modality Other 01/22/2025 [facility] Scanned SCANNING Final Resu lt * PAP SMEAR (02/02/2023) 02/02/2023 [facility] Scanned SCANNING Final Resu lt * HEPATITIS C ANTIBODY (09/28/2022 8:58 AM K 9 HANDLER/ DEPUTY) HEPATITIS C AB NON-REACTI VE NON-REACT SOLITARIO 09/28/2022 8:45 PM K 9 HANDLER/ DEPUTY [facility] Comment: ANTIBODIES TO HCV NOT DETECTED. DOES NOT EXCLUDE THE POSSIBILITY OF EXPOSURE TO HCV. 09/28/2022 8:58 AM K 9 HANDLER/ DEPUTY Fe Aguilar MD LABORATORY Final Result [facility] [address] [place] [address], [place] [phone] from Last 3 Months or Most Recently Relevant to Health Maintenance Insurance [employer] A[employer] Care Teams Wire Welder Relationship Specialty Start Date End Date Fe Aguilar MD [address] [address] PCP - General INTERNAL MEDICINE 09/23/22
--- OUTSIDE RECORDS SUMMARY | 2025-01-31 13:32 | XMS_ITS ---
Author Organization [facility] Address [address] [facility] [address] [place] [address] Care Team Providers Care Spray Gun Striper Name Role Phone Fe Aguilar MD Primary Care Provider Myesha Travis Unavailable [phone] Allergies No Known Allergies REASON FOR VISIT yd,f/u,cc, Medications Medication SIG (Take, Route, Frequency, Duration) Notes Start Date End Date Status Omeprazole 40 MG 1 capsule 30 minutes before morning meal Orally Once a day for 30 day(s) Active Taltz 80 MG/ML 1 Subcutaneous every 4 weeks for 90 days Active hydrOXYzine HCl 25 MG take 1 tablet daily oral *Pick strength-form from [employer] for eRX* Active Etodolac 400 MG TAKE 1 TABLET(400 MG) BY MOUTH TWICE DAILY WITH FOOD for 90 Active predniSONE 5 MG 3 tablets once a day for 7 days, 2 tablets once a day for 7 days, 1 tablet once a day for 7 days Orally for 21 days 09/07/2024 09/27/2024 Active Encounters Encounter Location Date Provider Diagnosis [facility] [address] [facility] [address] [place] [address] 09/07/2024 Myesha Franco Ankylosing spondylit is of [...] 02/01 10:15:00 AM, [address] , [address], [address], Progress Notes * Jennifer HURSTIgnacioOB:1980 (44 yo F)Acc No.[id number]:09/07/2024 Patient: Aaliyah MARTINEZ Provider: Pennie FRANCO MD :1980 A ge:44 Y S ex:Female Date:09/07/2024 Address:[address] [place] [address] Pcp:Fe Aguilar MD Subjective: * Chief Complaints: [...] for the most part, feet aching, sees management accountant, had injections, wears orthotics, am stiffness: 30 [...] 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 She has seen Dr. Ribera and pain [...] , Notes to Pharmacist: *Pick strength-form from [employer]ore[employer] for eRX*Omeprazole 40 MG Capsule Delayed Release 1 capsule 30 minutes before morning meal Orally Once a day Taking Taltz 80 MG/ML Solution Auto-injector 1 Subcutaneous every 4 weeks Taking Etodolac 400 MG Tablet TAKE 1 TABLET(400 MG) BY MOUTH TWICE DAILY WITH FOOD Taking hydrOXYzine HCl 25 MG Tablet take 1 tablet daily oral , Notes to Pharmacist: *Pick strength-form from Amore[employer] for eRX*Taking Omeprazole 40 MG Capsule Delayed [...] Months * Billing Information: * Visit Code: 63232 Office Visit, Est Pt., Level 4. Modifiers: 95 * Procedure Codes: * Sign off status: Completed true * Provider: Pennie FRANCO MD Date: Generated for Marco roach/Shreya/Horacio on: 0 01/31/2025 01:32 PM CDT History and Physical Notes * HPI (History of Present Illness) Category Sub-Category Detail Notes Category Not es General Follow up Synchronous video/audio telecommunication with [employer] Patient has agreed to telehealth visit and is aware insurance will be billed for this visit Location: patient at home, physician in office hair falling out, tired, jaw pain , headaches, +facial redness, feet bother her on etodolac and taltz, meds helping, doing fine for the most part, feet aching, sees management accountant, had injections, wears orthotics, am stiffness: 30 [...] 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 She has seen Dr. Ribera and pain [...]
--- OUTSIDE RECORDS SUMMARY | 2025-01-31 13:32 | XMS_ITS | Referral Summary ---
Author Organization [facility] [address] Address [address] [place] [address] Care Team Providers Care Construction Administrator Name Role Phone Fe Aguilar MD Primary Care Provider [phone] Allergies No known active allergies Medications hydrOXYzine [...] on file Legal Sex Female 11:06 PM SET UP OPERATOR Gender Identity Not on file Sexual Orientation [...] Plan of Treatment [place] [address] AETNA [facility] Care Teams Construction Administrator Relationship Specialty Start Date End Date Fe Aguilar MD [address] [place] [address] PCP - General Internal Medicine 09/05/23
--- OUTSIDE RECORDS SUMMARY | 2025-01-31 13:32 | XMS_ITS | Encounter Summary ---
Author Organization [facility] Address [address] [place] [address] Care Team Providers Care Highway Safety Engineer Name Role Phone Fe Aguilar MD Primary Care Provider [phone] Encounter Details Date Type Department Care Team (Late st Contact Info) Description 10/24/2024 Free Flow Powerhart Message [facility] [address] [place] [address] Fe Aguilar MD [address] [place] [address] Amoxicillin Social History Tobacco Use Types [...] Sex Assigned at Female 01/04/2025 11:27 AM HORTICULTURE SUPERVISOR Legal Sex Female 8:21 PM CDT Gender Identity Female 01/04/2025 11:27 AM HORTICULTURE SUPERVISOR Sexual Orientation Not on file documented as of this encounter Plan of Treatment Upcoming Encounters Date Type Department Care Team (Latest Contact Info) Description 05/01/2025 8:20 AM CDT Office Visit [facility] Medical [facility] Multispecialty [place] [address] [address] [place] [address] Fe Aguilar MD [address] [place] [address] 05/23/2025 8:59 AM CDT Hospital Encounter [facility] [address] [place] [address] Leonel Mansfield MD 3 [facility] [address] [place] [address] 05/23/2025 8:59 AM CDT - 05/23/2025 9:25 AM CDT Surgery [facility] [address] [place] [address] Leonel Mansfield MD 3 [facility] [address] [place] [address] COLONOSCOPY SCREENING Scheduled Procedures Name Priority Associated Diagnoses Date/Ti me COLONOSCOPY SCREENING Screening for colon cancer 05/23/2025 8:59 AM CDT documented as of this encounter Visit Diagnoses Not on filedocumented in this encounter Additional Health Concerns Assessment Noted Time PHQ-9 Depression Total Score: 2 10/24/20 24 9:45 AM HORTICULTURE SUPERVISOR documented as of this encounter Care Teams Highway Safety Engineer Relationship Specialty Start Date End Date Fe Aguilar MD [address] [address] PCP - General INTERNAL MEDICINE 09/23/22 documented as of this encounter
--- OUTSIDE RECORDS SUMMARY | 2025-01-31 13:32 | XMS_ITS | Encounter Summary ---
Author Organization [facility] Address [address] [place] [address] Care Team Providers Care Core Inspector Name Role Phone Fe Aguilar MD Primary Care Provider [phone] Encounter Details Date Type Department Care Team (Latest Contact Info) Description 01/03/2025 MyChart [facility] [address] Fe Aguilar MD [address] [place] [phone] Subconjunctival hemorrhage Social History Tobacco Use Types [...] Sex Assigned at Female 01/04/2025 11:27 AM FOOD ORDER DELIVERY RUNNER Legal Sex Female 8:21 PM CDT Gender Identity Female 01/04/2025 11:27 AM FOOD ORDER DELIVERY RUNNER Sexual Orientation Not on file documented as of this encounter Plan of Treatment Upcoming Encounters Date Type Department Care Team (Latest Contact Info) Description 05/01/2025 8:20 AM CDT [facility] [address] [phone] Fe Aguilar MD [address] [place] [address] 05/23/2025 8:59 AM CDT Hospital Encounter [facility] [address] [place] [address] Leonel Mansfield MD 3 [facility] [address] [place] [address] 05/23/2025 8:59 AM CDT - 05/23/2025 9:25 AM CDT Surgery [facility] [address] [place] [address] Leonel Mansfield MD 3 [facility] [address] [place] [address] COLONOSCOPY SCREENING Scheduled Procedures Name Priority Associated Diagnoses Date/Ti me COLONOSCOPY SCREENING Screening for colon cancer 05/23/2025 8:59 AM CDT documented as of this encounter Visit Diagnoses Not on filedocumented in this encounter Additional Health Concerns Assessment Noted Time PHQ-9 Depression Total Score: 2 10/24/20 24 9:45 AM FOOD ORDER DELIVERY RUNNER documented as of this encounter Care Teams Core Inspector Relationship Specialty Start Date End Date Fe Aguilar MD [address] [facility] [address] [place] [address] PCP - General INTERNAL MEDICINE 09/23/22 documented as of this encounter
--- OUTSIDE RECORDS SUMMARY | 2025-01-31 13:32 | XMS_ITS | Encounter Summary ---
Author Organization [facility] Address [address] [place] [address] Care Team Providers Care Change Management Analyst Name Role Phone Fe Aguilar MD Primary Care Provider [phone] Encounter Details Date Type Department Care Team (Latest Contact Info) Description 09/19/2023 MyChart Message [facility] [address] Fe Aguilar MD [address] [place] [address] [phone] reschedule your upcoming appointment Social History Tobacco [...] Sex Assigned at Female 01/04/2025 11:27 AM CURTAIN ROLLER ASSEMBLER Legal Sex Female 8:21 PM CDT Gender Identity Female 01/04/2025 11:27 AM CURTAIN ROLLER ASSEMBLER Sexual Orientation Not on file documented as of this encounter Plan of Treatment Upcoming Encounters Date Type Department Care Team (Latest Contact Info) Description 05/01/2025 8:20 AM CDT [facility] [address] [phone] Fe Aguilar MD [address] [place] [address] 05/23/2025 8:59 AM CDT Hospital Encounter [facility] [address] [place] [address] Leonel Mansfield MD 3 [facility] [address] [place] [address] 05/23/2025 8:59 AM CDT - 05/23/2025 9:25 AM CDT Surgery [facility] [address] [place] [address] Leonel Mansfield MD 3 [facility] [address] [place] [address] COLONOSCOPY SCREENING Scheduled Procedures Name Priority Associated Diagnoses Date/Ti me COLONOSCOPY SCREENING Screening for colon cancer 05/23/2025 8:59 AM CDT documented as of this encounter Visit Diagnoses Not on filedocumented in this encounter Care Teams Change Management Analyst Relationship Specialty Start Date End Date Fe Aguilar MD [address] [facility] [address] [place] [address] PCP - General INTERNAL MEDICINE 09/23/22 documented as of this encounter
--- OUTSIDE RECORDS SUMMARY | 2025-01-31 13:32 | XMS_ITS | Encounter Summary ---
Author Organization [facility] Address [address] [place] [address] Phone Care Team Providers Care Casino Operations Supervisor Name Role Phone Cas Rizo MD Primary Care Provider [phone] Reason for Visit * Reason Comments Medication Refill Encounter Details Date Type Department Care Team (Late st Contact Info) Description 04/03/2021 Refill [facility] - Gastroenterology [facility] [address] [place] [address] Negra Childress Cinthia, PAC [address] [place] [address] Medication Refill Social History Tobacco Use Types Packs/Day Years Used Date Smoking Tobacco: Never Smokeless Tobacco: Never Alcohol Use Standard Drinks/Week Comments Yes 0 (1 standard drink = 0.6 oz pur e alcohol) 1x monthly Sexually Active Control Partners Comments Yes Comments No Sex and Gender Information Value Date Recorded Sex Assigned at Not on file Legal Sex Female 2:42 PM ROUGH AND TRUEING MACHINE OPERATOR Gender Identity Not on file Sexual [...] type documented in this encounter Care Teams Casino Operations Supervisor Relationship Specialty Start Date End Date Cas Rizo MD [address] [address] PCP - General Family Medicine 12/11/20 documented as of this encounter
--- OUTSIDE RECORDS SUMMARY | 2025-01-31 13:32 | XMS_ITS | Encounter Summary ---
Author Organization [facility] Address [address] [place] [address] Care Team Providers Care Brick Yard Hand Name Role Phone Fe Aguilar MD Primary Care Provider [phone] Encounter Details Date Type Department Care Team (Late st Contact Info) Description 05/27/2023 PneumRxhart Message Enc [facility] [address] [address] [place] [address] Fe Aguilar MD [address] [place] [address] Uti Social History Tobacco Use Types [...] Sex Assigned at Female 01/04/2025 11:27 AM TAX MANAGER Legal Sex Female 8:21 PM CDT Gender Identity Female 01/04/2025 11:27 AM TAX MANAGER Sexual Orientation Not on file documented as of this encounter Plan of Treatment Upcoming Encounters Date Type Department Care Team (Latest Contact Info) Description 05/01/2025 8:20 AM CDT Office Visit [facility] Medical [facility] Multispecialty [place] [address] [address] [place] [address] Fe Aguilar MD [address] [place] [address] 05/23/2025 8:59 AM CDT Hospital Encounter [facility] [address] [place] [address] Leonel Mansfield MD 3 [facility] [address] [place] [address] 05/23/2025 8:59 AM CDT - 05/23/2025 9:25 AM CDT Surgery [facility] [address] [place] [address] Leonel Mansfield MD [address] [address] COLONOSCOPY SCREENING Scheduled Procedures Name Priority Associated Diagnoses Date/Ti me COLONOSCOPY SCREENING Screening for colon cancer 05/23/2025 8:59 AM CDT documented as of this encounter Visit Diagnoses Not on filedocumented in this encounter Care Teams Brick Yard Hand Relationship Specialty Start Date End Date Fe Aguilar MD [address] [facility] [address] [place] [address] PCP - General INTERNAL MEDICINE 09/23/22 documented as of this encounter
--- OUTSIDE RECORDS SUMMARY | 2025-01-31 13:32 | XMS_ITS | Clinical Summary ---
Author Organization [facility] [employer] Address [address] [facility] [place] [address] Care Team Providers Care Sales And Retail Management Recruiter Name Role Phone Miles Quezada DO Primary Care Provider [phone] Source Comments [facility],non-owned Affiliates and Associated Physician Practices is amultiple site organization consisting of ambulatory clinics and hospital sitesin [place], [place], [place] and [place]. This disclosure is being madepursuant to the Care Everywhere program and may not contain all information available regarding this patient. Last updated 18.[facility] [employer] Allergies No known active allergies Medications * [...] Comments Blood Pressure 100/58 01/01/2018 3:05 PM [facility] Pulse 70 01/01/2018 3:05 PM [facility] Temperature 36.7 C (98.1 F) 01/01/2018 3:05 PM [facility] Respiratory Rate 16 01/01/2018 3:05 PM [facility] Oxygen Saturation 100% 01/01/2018 3:05 PM [facility] Inhaled Oxygen Concentration - - Weight 70.3 kg (155 lb) 01/01/2018 3:05 PM [facility] Height 167.6 cm (5' 6 ) 01/01/2018 3:05 PM [facility] Body Mass Index 25.02 01/01/2018 3:05 PM [facility] Plan of Treatment Health Maintenance Due Date [...] age to complete this topic Care Teams Sales And Retail Management Recruiter Relationship Specialty Start Date End Date Miles Quezada DO PCP - General 03/02/18
--- OUTSIDE RECORDS SUMMARY | 2025-01-31 13:32 | XMS_ITS ---
Author Organization [facility] Address [address] [place] [address] Care Team Providers Care Concrete Pipe Making Machine Operator Name Role Phone Fe Aguilar MD Primary Care Provider Myesha Travis Unavailable [phone] Allergies No Known Allergies REASON FOR VISIT [...] 1 tablet daily oral *Pick strength-form from [employer] for eRX* Active Taltz 80 MG/ML 1 [...] 11/06/2024 Encounters Encounter Location Date Provider Diagnosis [facility] [address] [place] [address] 11/06/2024 Myesha Franco Ankylosing spondylit is of [...] Earl, 02/01 10:15:00 AM, [address] [facility], [address], [address], Progress Notes * Jennifer HURSTIgnacioOB:1980 (44 yo F)Acc No.[id number]:11/06/2024 Progress Notes Patient: Aaliyah MARTINEZ Provider: Pennie FRANCO MD :1980 A ge:44 Y S ex:Female Date:11/06/2024 Address:[address] [place], [place] [id number] Pcp:Fe Aguilar MD Subjective: * Chief Complaints: * Y d,f/u,ccAS * HPI: G eneral Follow up: on etodolac and taltz, meds helping, heels and low back aching, 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 She has seen Dr. Ribera and pain [...] Notes to Pharmacist: *Pick strength- form from [employer] for eRX*Omeprazole 40 MG Capsule Delayed Release [...] , Notes to Pharmacist: *Pick strength-form from [employer] for eRX*Taking Omeprazole 40 MG Capsule Delayed [...] Months * Billing Information: * Visit Code: 77699 Office Visit, Est Pt., Level 4. 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 She has seen Dr. Ribera and pain [...]
--- OUTSIDE RECORDS SUMMARY | 2025-01-31 13:32 | XMS_ITS ---
Author Organization [facility] Address [address] [place] [address] Care Team Providers Care Children'S Literature Professor Name Role Phone Fe Aguilar MD Primary Care Provider Myesha Travis [phone] REASON FOR VISIT Painful pus filled bumps on my face Encounters Encounter Location Date Provider Diagnosis [facility] [address] [place] [address] 01/18/2025 Myesha Elliott Plan Of Treatment Next Appt Details Provider Name:Myesha Elliott, 02/01 10:15:00 AM, [address], [place], [address], Progress Notes * Ngozi HURSTOB:1980 (44 yo F)Acc No.[id number]:01/18/2025 Patient: Aaliyah MARTINEZ :1980 A ge:44 Y S ex:Female Address:[address] [facility] [address] * true * Date: Generated for Printi ng/Faxing/eTransmitting on: 0 01/31/2025 01:32 PM CDT
--- OUTSIDE RECORDS SUMMARY | 2025-01-31 13:32 | XMS_ITS | Encounter Summary ---
Author Organization [facility] Address [address] [place] [address] Care Team Providers Care Resident Care Associate Name Role Phone Fe Aguilar MD Primary Care Provider [phone] Encounter Details Date Type Department Care Team (Late st Contact Info) Description 07/23/2023 Neironhart [facility] [address] Fe Aguilar MD [address] [place] [address] [phone] Covid/flu shot Social History Tobacco Use Types [...] Sex Assigned at Female 01/04/2025 11:27 AM STEAMBOAT PILOT Legal Sex Female 8:21 PM CDT Gender Identity Female 01/04/2025 11:27 AM STEAMBOAT PILOT Sexual Orientation Not on file documented as of this encounter Plan of Treatment Upcoming Encounters Date Type Department Care Team (Latest Contact Info) Description 05/01/2025 8:20 AM CDT [facility] [address] [phone] Fe Aguilar MD [address] [place] [address] 05/23/2025 8:59 AM CDT Hospital Encounter [facility] [address] [place] [address] Leonel Mansfield MD 3 [facility] [address] [place] [address] 05/23/2025 8:59 AM CDT - 05/23/2025 9:25 AM CDT Surgery [facility] [address] [place] [address] Leonel Mansfield MD 3 [facility] [address] [place] [address] COLONOSCOPY SCREENING Scheduled Procedures Name Priority Associated Diagnoses Date/Ti me COLONOSCOPY SCREENING Screening for colon cancer 05/23/2025 8:59 AM CDT documented as of this encounter Visit Diagnoses Not on filedocumented in this encounter Care Teams Resident Care Associate Relationship Specialty Start Date End Date Fe Aguilar MD 1188 [facility] [address] [place] [address] PCP - General INTERNAL MEDICINE 09/23/22 documented as of this encounter
--- OUTSIDE RECORDS SUMMARY | 2025-01-31 13:33 | XMS_ITS | Encounter Summary ---
Author Organization [facility] Address [address] [place] [address] Care Team Providers Care Executive Chairman Name Role Phone Fe Aguilar MD Primary Care Provider [phone] Encounter Details Date Type Department Care Team (Late st Contact Info) Description 02/19/2023 Deemelohart Message Enc [facility] Medical [facility] Multispecialty [facility] - [address] [address] Fe Aguilar MD [address] [place] [address] [phone] Strep A Social History Tobacco Use Types [...] Sex Assigned at Female 01/04/2025 11:27 AM TRAINING ASSOCIATE Legal Sex Female 8:21 PM CDT Gender Identity Female 01/04/2025 11:27 AM TRAINING ASSOCIATE Sexual Orientation Not on file documented as of this encounter Plan of Treatment Upcoming Encounters Date Type Department Care Team (Latest Contact Info) Description 05/01/2025 8:20 AM CDT Office Visit [facility] Medical [facility] Multispecialty [facility] - [address] [address] Fe Aguilar MD [address] [place] [address] 05/23/2025 8:59 AM CDT Hospital Encounter [facility] [address] [place] [address] Leonel Mansfield MD 3 [facility] 5000 [place] [address] 05/23/2025 8:59 AM CDT - 05/23/2025 9:25 AM CDT Surgery [facility] [address] [place] [address] Leonel Mansfield MD [address] [address] COLONOSCOPY SCREENING Scheduled Procedures Name Priority Associated Diagnoses Date/Ti me COLONOSCOPY SCREENING Screening for colon cancer 05/23/2025 8:59 AM CDT documented as of this encounter Visit Diagnoses Not on filedocumented in this encounter Care Teams Executive Chairman Relationship Specialty Start Date End Date Fe Aguilar MD 1188 [facility] [address] [place] [address] PCP - General INTERNAL MEDICINE 09/23/22 documented as of this encounter
--- OUTSIDE RECORDS SUMMARY | 2025-01-31 13:33 | XMS_ITS | Encounter Summary ---
Author Organization [facility] Address [address] [place] [address] Care Team Providers Care Buffing Wheel Former Automatic Name Role Phone Fe Aguilar MD Primary Care Provider [phone] Encounter Details Date Type Department Care Team (Late st Contact Info) Description 12/30/2022 Guam Pak Expresshart Message Enc [facility] Medical [facility] Multispecialty [facility] Emergency Department - [address] [address] Fe Aguilar MD [address] [place] [address] [phone] Glucose levels Social History Tobacco Use Types [...] Sex Assigned at Female 01/04/2025 11:27 AM BILL OF LADING CLERK Legal Sex Female 8:21 PM CDT Gender Identity Female 01/04/2025 11:27 AM BILL OF LADING CLERK Sexual Orientation Not on file documented as of this encounter Plan of Treatment Upcoming Encounters Date Type Department Care Team (Latest Contact Info) Description 05/01/2025 8:20 AM CDT Office Visit [facility] Medical [facility] Multispecialty [facility] Emergency Department - [address] [phone] Fe Aguilar MD [address] [place] [address] 05/23/2025 8:59 AM CDT Hospital Encounter [facility] [address] [place] [address] Leonel Mansfield MD 3 [facility] [address] [place] [address] 05/23/2025 8:59 AM CDT - 05/23/2025 9:25 AM CDT Surgery [facility] [address] [place] [address] Leonel Mansfield MD [address] [address] COLONOSCOPY SCREENING Scheduled Procedures Name Priority Associated Diagnoses Date/Ti me COLONOSCOPY SCREENING Screening for colon cancer 05/23/2025 8:59 AM CDT documented as of this encounter Visit Diagnoses Not on filedocumented in this encounter Care Teams Buffing Wheel Former Automatic Relationship Specialty Start Date End Date Fe Aguilar MD 1188 [facility] [address] [place] [address] PCP - General INTERNAL MEDICINE 09/23/22 documented as of this encounter
--- OUTSIDE RECORDS SUMMARY | 2025-01-31 13:33 | XMS_ITS | Patient Health Record ---
Author Organization [facility] Address [address] [facility] [address] [place] [address] Care Team Providers Care Research Chemical Engineer Name Role Phone Jeff WRIGHT, Fe Primary Care Provider Marianna ElliottKristeng Unavailable [phone] Allergies No Known Allergies Results Component Value Reference Range Notes eGFR Reviewed date:08/01/2024 07:37:37 PM Interpretation: Performing Lab:[facility] [facility] [address] Notes/Report: eGFR >90 >=60 mL/min/1.73 m2 Interpretive [...] Ab Reviewed date:08/02/2024 03:08:10 PM Interpretation: Performing Lab:[facility] , [address] [facility] [address] Notes/Report: SS B Antibody <0.2 <=0.9 Ab Index Interpretive Data Negative: < 1.0 Ab Index Positive: > or = 1.0 Ab Index Current interpretive data was last revised on 2017. SSA Ab Reviewed date:08/02/2024 03:08:10 PM Interpretation: Performing Lab:[facility] [address] [facility] [address] Notes/Report: SS A Antibody <0.2 <=0.9 Ab Index Interpretive Data Negative: < 1.0 Ab Index Positive: > or = 1.0 Ab Index Current interpretive data was last revised on 2017. Waters Ab. Reviewed date:08/02/2024 03:08:10 PM Interpretation: Performing Lab:[facility] , [address] [place] [address]. [facility] [address] Notes/Report: Waters Antibody <0.2 <=0.9 Ab Index Interpretive Data Negative: < 1.0 Ab Index Positive: > or = 1.0 Ab Index Current interpretive data was last revised on 2017. SCL 70 Antibodies Reviewed date:08/02/2024 03:08:10 PM Interpretation: Performing Lab:[facility] [facility] [address] Notes/Report: Scl 70 Ab, IgG <0.2 <=0.9 Ab Index Interpretive Data Negative: < 1.0 Ab Index Positive: > or = 1.0 Ab Index Current interpretive data was last revised on 2017. Ribonuclear Protein (FOREST ENGINEER) Ab Reviewed date:08/02/2024 03:08:10 PM Interpretation: Performing Lab:[facility] , [address] [facility] [address] Notes/Report: FOREST ENGINEER Antibody 0.5 <=0.9 Ab Index Interpretive Data Negative: < 1.0 Ab Index Positive: > or = 1.0 Ab Index Current interpretive data was last revised on 2017. Emilee 1 Ab Reviewed date:08/02/2024 03:08:10 PM Interpretation: Performing Lab:[facility] , [address] [facility] [address] Notes/Report: Emilee 1 Ab, IgG <0.2 <=0.9 Ab Index Interpretive Data Negative: < 1.0 Ab Index Positive: > or = 1.0 Ab Index Current interpretive data was last revised on 2017. Sed Rate Reviewed date:08/01/2024 02:56:04 PM Interpretation: Performing Lab:[facility] , [address] [place] [address]. [facility] [address] Notes/Report: ESR 10 1-20 mm/hr QTB Gold Reviewed date:08/03/2024 09:55:25 PM Interpretation: Performing Lab:[facility] , [address] [place] [address]. [facility] [address] Notes/Report: QuantiFERON TB Gold Negative Negative No [...] Diagnosis of Tuberculosis in Adults and Children [Tyler FARRIS et. al. Clin. Infect. Dis. 2017;64(2):111-115]. The reference range for the 'TB1 Ag minus Nil Result' and 'TB2 Ag minus Nil Result' is an Interferon-gamma level <0.35 IU/mL. TB-Nil 0.21 TB2-Nil -0.31 Mitogen-Nil 2.22 NIL 0.47 Test Performed by: [place] [address] Travel Accommodations Rater: Nacho Serrano Ph.D.; CLIA# [id number] Histone ab Reviewed date:08/10/2024 10:19:14 AM Interpretation: Performing Lab:[facility] , [address] [place] [address]. [facility] [address] Notes/Report: Histone Ab 1.4 Value Explanation of Results ------ <1.0 Negative 1.0-1.5 Weak Positive 1.6-2.5 Moderate Positive >2.5 Strong Positive Test Performed at: [facility] [address] [address] ARCELIA ANDERSON [facility] metabolic pane l ([facility]) Reviewed date:08/01/2024 07:37:37 PM Interpretation: Performing Lab:[facility] , [address] [place] [address]. [place] [address] Notes/Report: Sodium 139 135-145 mmol/L Plasma Potassium [...] classification and Diagnosis of Diabetes Diabetes Care 2021; 46: S19-S40. Current interpretive data was last revised 2022. Total Calcium 9.2 8.5-10.3 mg/dL Total Bilirubin 0.4 0.1-1.2 mg/dL Plasma Total Protein 7.6 6.5-8.5 g/dL Albumin 4.4 3.5-5.0 g/dL Alkaline Phosphatase 66 40-130 Units/L ALT 17 7-45 Units/L AST 13 10-45 Units/L Complement C4 Reviewed date:08/01/2024 07:37:37 PM Interpretation: Performing Lab:[facility] , [address] [place] [address]. [place] [address] Notes/Report: Complement, C4 28 10-40 mg/dL Complement C3 Reviewed date:08/01/2024 07:37:37 PM Interpretation: Performing Lab:[facility] , [address] [place] [address]. [place] [address] Notes/Report: Complement, C3 133 90-180 mg/dL CBC w auto diff Reviewed date:08/01/2024 02:56:04 PM Interpretation: Performing Lab:[facility] , [address] [place] [address]. [facility] [address] Notes/Report: WBC 7.1 3.8-9.9 K/cumm Hgb 14.1 11.9-15.5 g/dL Hct 43.4 35.6-45.5 % Platelet Ct 247 150-400 K/cumm MPV 10.5 9.1-12.3 fL RBC 4.68 3.90-5.20 M/cumm MCV 92.7 81.3-96.4 fL MCH 30.1 27.1-33.3 pg MCHC 32.5 32.3-35.7 g/dL RDW CV 12.5 11.1-14.9 % RDW SD 42.6 35.7-48.1 fL NRBC Abs Auto 0.00 0.00-0.01 K/cumm C Reactive Protein Reviewed date:08/01/2024 07:37:37 PM Interpretation: Performing Lab:[facility] , [address] [place] [address]. [facility] [address] Notes/Report: C-Reactive Protein <3.0 <=10.0 mg/L NAYELI reflex titer pattern MASON + dsDNA Reviewed date:08/02/2024 01:39:03 PM Interpretation: Performing Lab:[facility] , [address] [place] [address]. [facility] [address] Notes/Report: NAYELI, Qual Positive 1:80 Interpretive Data [...] last revised on 2020. Testing performed by: [facility], [address] [place] [address] NAYELI, Ren 1:80 Testing performed by: [facility], [address] [place] [address] NAYELI Pattern 1 Speckled Testing performed by: [facility], [address], [place]., [address] MASON Screen Reviewed date:08/02/2024 03:08:10 PM Interpretation: Performing Lab:[facility] [place] [address] Notes/Report: MASON Screen Positive Negative Interpretive Data Positive Screens will be reflexed to specific testing for Antibodies against the following antigens: Emilee-1 Ab, FOREST ENGINEER Ab, Scl-70 Ab, Waters Ab, SS-A/Ro Ab, and SS-B/La Ab. Further testing for dsDNA, Centromere, or Ribosomal P antibodies is suggested in patient with a positive screen and negative specific antibodies. Current interpretive data was last revised on 2023. DS DNA Reviewed date:08/02/2024 03:08:09 PM Interpretation: Performing Lab:[facility] , [address] [facility]. [place] [address] Notes/Report: Double Stranded DNA, Ren 4.0 <=4.0 IUnits/mL Interpretive Data Negative: < or = 4 IUnits/mL Indeterminate: 5 - 9 IUnits/mL Positive: > or = 10 IUnits/mL Current interpretive data was last revised on 2017. Differential Automated Reviewed date:08/01/2024 02:56:04 PM Interpretation: Performing Lab:[facility] [facility]. [place] [address] Notes/Report: Neut Abs 4.3 1.5-6.5 K/cumm ImmGran Abs 0.0 0.0-0.1 K/cumm Lymphocyte Abs 1.9 0.8-3.3 K/cumm Bamberg Abs 0.7 0.2-0.8 K/cumm Eos Abs 0.1 [...] Interpretive Data was last revised on 2018. Bamberg Pct 9.6 Interpretive Data Percent cell count [...] Interpretive Data was last revised on 2018. 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) Active confirmed Problem 6312811 Ankylosing spondylitis of multiple sites in spine (M45.0) Active confirmed Vital Signs Heart Rate 77 /min 11/06/2024 Temperature 98.3 degrees Fahrenheit 11/06/2024 Height-cm 167.64 cm 11/06/2024 Blood pressure diastolic 74 mm Hg 11/06/2024 Oximetry 98 % 08/01/2024 Weight-kg 73.02 kg 11/06/2024 Height 66 in 11/06/2024 Blood pressure systolic 110 mm Hg 11/06/2024 Weight 161 lbs 11/06/2024 BMI 25.98 kg/m2 11/06/2024 Encounters Encounter Location Date Provider Diagnosis [facility] [address] [place] [address] 05/02/2024 Myesha Du Ankylosing spondylit is of multiple sites in spine M45.0 ; Scleritis, unspecified laterality H15.009 ; Other local lupus erythematosus L93.2 ; Adverse effect of unspecified drugs, medicaments and biological substances, initial encounter T50.905A and Lumbar back pain M54.50 [facility] [address] [facility] [address] [place] [address] 08/01/2024 Myesha Du Ankylosing spondylit is of multiple sites in spine M45.0 ; Scleritis, unspecified laterality H15.009 ; Other local lupus erythematosus L93.2 ; Adverse effect of unspecified drugs, medicaments and biological substances, initial encounter T50.905A and Lumbar back pain M54.50 [facility] [address] [facility] [address] [place] [address] 08/11/2024 Myesha Du Ankylosing spondylit is of multiple sites in spine M45.0 ; Scleritis, unspecified laterality H15.009 ; Other local lupus erythematosus L93.2 ; Adverse effect of unspecified drugs, medicaments and biological substances, initial encounter T50.905A and Lumbar back pain M54.50 [facility] [address] [facility] [address] [place] [address] 09/07/2024 Myesha Du Ankylosing spondylit is of multiple sites in spine M45.0 ; Scleritis, unspecified laterality H15.009 ; Other local lupus erythematosus L93.2 ; Adverse effect of unspecified drugs, medicaments and biological substances, initial encounter T50.905A and Lumbar back pain M54.50 [facility] [address] [facility] [address] [place] [address] 11/06/2024 Myesha Du Ankylosing spondylit is of multiple sites in spine M45.0 ; Scleritis, unspecified laterality H15.009 ; Other local lupus erythematosus L93.2 ; Adverse effect of unspecified drugs, medicaments and biological substances, initial encounter T50.905A and Lumbar back pain M54.50 [facility] [address] [facility] [address] [place] [address] 02/01/2024 [facility] [address] [place] [address] 04/10/2024 [facility] [address] [place] [address] 06/20/2024 [facility] [address] [place] [address] 07/25/2024 [facility] Ankylosing spondylit is of multiple sites in spine M45.0 [facility] [address] [place] [address] 02/01/2024 [facility] [address] [place] [address] 02/07/2024 [facility] [address] [place] [address] 04/10/2024 [facility] [address] [place] [address] 08/02/2024 [facility] [address] [place] [address] 08/09/2024 [facility] [address] [place] [address] 08/10/2024 [facility] [address] [place] [address] 08/10/2024 [facility] [address] [place] [address] 09/06/2024 [facility] [address] [place] [address] 01/18/2025 [facility] Assessments Encounter Date Diagnosis (ICD Code) Assessment Notes Treatment Notes Treatment Clinical Notes Section Notes 05/02/2024 Ankylosing spondylitis of multiple sites in [...] Elliott, 02/01 10:15:00 AM, [address], [facility] [address], [place], [address], Insurance Providers Payer Name Payer Address Payer Phone Subscriber Number Group Number Insured Name Patient Relationship to Insured Coverage Start Date Coverage End Date [employer] - Commercial [address] [place] [address] [id number] Aaliyah Young Self - patient is the insured Medical (General) History Medical History History ICD Code Jeannie-Danlos syndrome; GERD (gastroesophageal reflux disease); Surgical History Surgery Date(Month/Year) Wrist surgery; 2020-12-14
== END 2025-01-31 12:27 | disposition home or self-care (01) ==
LOC: ANHIMG 12:28
PROVIDERS: PCP Internal Medicine; Visit Provider Nurse Practitioner Women's Health
DX: R92.8 Other abnormal and inconclusive findings on diagnostic imaging of breast (principal)
CPT/HCPCS: 77061; 77065; G0279